=== PATIENT | female | born 1990 | race Caucasian/White ===

== ENCOUNTER 2018-07-24 10:05 | Emergency (ER) | payer OTHER, SELFPAY ==
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
[2018-07-24 11:20] VITALS: BP 115/73; TEMP 97.8; O2SAT 100
== END 2018-07-24 11:16 | disposition left against medical advice (07) ==
LOC: ER 10:05
DX: Z53.21 Procedure and treatment not carried out due to patient leaving prior to being seen by health care provider (principal)
CPT/HCPCS: 99281

== ENCOUNTER 2021-01-18 15:04 | Emergency (ER) | payer BC ==
--- OUTSIDE RECORDS SUMMARY | 2021-01-18 15:07 | XMS REPORT | Continuity of Care Document ---
:1990 Author Organization [facility] t Address [address] [place] [address] Care Team Providers Name Role Phone Unavailable Unavailable Unavailable Payers Payer Name Policy Type Policy Number Effective Date Expiration Date S ource Problems This patient has no known problems. Allergies, Adverse Reactions, Alerts Allergy Allergy Status Severity Reaction(s) Onset Inactive Treating Comm ents Source Name Type Date Date Clinician morphine DA Active U 2019-11 [facility] [place] Medications This patient has no known medications. Procedures This patient has no known procedures. Results Test Description Test Time Test Comments Results Result Comments Source COVID 19 Asymptomatic IH AG 2020-09-06 17:25:00 Test Item Value Reference Range Interpretation Comme nts COVID 19 Asymptomatic IH AG NEGATIVE NEGATIVE This test has been authorized only (test code = COVNONPUIAG) fo r the detection ofproteins from SARS-CoV-2, not for any other viruses orpatho gens. Negative results should be treated as presumptive and confirmed with a molecular assay , if necessary for patientmanageme nt. Negative results do not rule out COVID-19 andshould not be used as the sole basis for treatment orpat ient management decisions, incl uding infection controldecision s. Negative results should be consi dered in thecontext of a patient's recent exposures, history and the presence of clinical signs and sympt oms consistent withCOVID-19. T his test has not been FDA cleare d or approved; the test hasbeen au thorized by FDA under an Emerge ncy Use Authorization(E UA) for use by laboratories ce rtified under the CLIA thatmeet t he requirements to perform moderat e, high or waivedcomplexit y tests. This test is authorized f or use at thePoint of Care (POC), i.e., in patient care settingsop erating under a CLIA Certificate of Waiver, Certificate ofCompliance, o r Certificate of Accreditation. This test is only authorized for the duration of thedeclaration that circumstances exist justifyin g theauthorization of emergency us e of in vitro diagnostic test sfor detection and/or diagnosi s of COVID-19 under Tubdfbu961(b)(1 ) of the Act, 21 U.S.C. 360bbb -3(b)(1), unless theauthorizatio n is terminated or revoked sooner. UR HCG [id number] 13:23:00 Test Item Value Reference Range Interpretation Comments UR HCG QUAL (test NEGATIVE 1. Very d ilute urine code = HCGQLU) specimens, as indicated by a lowspecific g ravity, may not contain rep resentative levels ofhCG. 2 . False negative result s may occur when the levels of hCGare below the sensi tivity level of the test. If is still suspec harjit, a first morningurine sp ecimen should be colle cted 48 hours later and tested. HGB [id number] 11:10:00 Test Item Value Reference Range Interpretation Comments HEMOGLOBIN (test code = HGB) 14.2 g/dL 10.7-13.9 H HEMATOCRIT (test code = HCT) 42.1 % 32.1-42.1 N
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
[2021-01-18 22:17] VITALS: BP 127/93; O2SAT 100
== END 2021-01-18 15:28 | disposition left against medical advice (07) ==
LOC: ER 15:04
DX: R07.9 Chest pain, unspecified (principal); F32.9 Major depressive disorder, single episode, unspecified; Z53.21 Procedure and treatment not carried out due to patient leaving prior to being seen by health care provider
CPT/HCPCS: 93005; 99281

== ENCOUNTER 2021-09-08 22:19 | Emergency (ER) | payer BC ==
[2021-09-08] MEDS ORDERED: ONDANSETRON 4 MG/2 ML VIAL ONE (23:21)
[2021-09-08] MEDS ORDERED: FENTANYL CITR 100 MCG/2 ML ONE (23:21)
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
[2021-09-09] MEDS ORDERED: CYCLOBENZAPRINE 10 MG TAB ONE (00:50)
[2021-09-09 01:15] VITALS: TEMP 98.2
[2021-09-09 01:19] VITALS: BP 136/89; O2SAT 98
--- NOTE | 2021-09-09 17:55 | RAD REPORT ---
EXAM DESCRIPTION: CT - Head C Spine Cap W Con - 09/09/2021 6:26 am COMPARISON: None. CLINICAL HISTORY: [facility] [place] MAIN FACIAL PAIN TECHNIQUE: Axial images were obtained from skull base to vertex without intravenous contrast. Imag es viewed on bone and brain windows. Multiplanar reformats were performed. Automated exposure contr ol was utilized on this examination as a dose lowering technique. FINDINGS: Brain parenchyma, ventricles, dura, meninges, and extra-axial spaces: Ventricles and sulci are normal. No abnormal attenuation of brain parenchyma is present. No acute intracranial hemor rhage or abnormal extra-axial fluid collections are present. Vascular structures: No hyperdense arteries or veins. Calvarium, mastoid air cells, paranasal sinuses and orbits: The calvarium is normal. The mastoid air cells are clear. Visualized paranasal sinuses are unremarkable. Orbital structures are unremarkable. EXAM DESCRIPTION: CT Maxillofacial COMPARISON: None. CLINICAL HISTORY: FACIAL PAIN TECHNIQUE: High resolution axial CT images are obtained through the maxillofacial bones without intr avenous contrast followed by multiplanar reformats. Automated exposure control was utilized on this e xamination as a dose lowering technique. FINDINGS: Maxillofacial bones and mandible: No evidence for fracture or destructive osseous process. Orbital structures: Unremarkable. Paranasal sinuses: Clear. Soft tissues: A small amount of gas is noted in the right paranasal soft tissues. Visualized intracranial structures: The visualized structures of the skull base are normal. Visualize d intracranial structures are normal. EXAM DESCRIPTION: CT Cervical Spine COMPARISON: None. CLINICAL HISTORY: [facility] [place] MAIN PAIN TECHNIQUE: Axial CT images were obtained through the entire cervical spine without contrast. Sagit leann and coronal reconstructions are provided. Automated exposure control was utilized on this examina tion as a dose lowering technique. FINDINGS: Vertebrae: Vertebral statures and alignment are normal. No acute fracture, dislocation o r destructive osseous process is present. Spinal canal, foramina, and facet joints: No significant spinal canal or foraminal stenoses. No significant facet arthropathy. Paraspinous soft-tissues: Normal. Thyroid: Normal. Other Findings: None. EXAM DESCRIPTION: CT Chest, Abdomen, and Pelvis COMPARISON: None. CLINICAL HISTORY: [facility] [place] MAIN PAIN TECHNIQUE: CT images through the chest, abdomen, and pelvis following IV contrast. Multiplanar refor mats. Automated exposure control was utilized on this examination as a dose lowering technique. CT CHEST FINDINGS: Heart and mediastinum: Heart size is normal. No lymphadenopathy. Vascular: Unremarkable. Thyroid gland: Visualized portions are normal. Lungs: Clear. Airways: No filling defects. No bronchiectasis. Pleura: No pneumothorax. No significant pleural effusion. Musculoskeletal and soft tissues: Within normal limits for age. CT ABDOMEN & PELVIS FINDINGS: Liver: Normal. Gallbladder and biliary: Normal gallbladder. Unremarkable biliary tree. Pancreas: Normal. Spleen: Normal. Kidneys and adrenal glands: Normal adrenal glands. Normal kidneys Stomach and Small Bowel: The stomach and small bowel are normal. Urinary bladder: Normal. Uterus and Adnexa: Normal. Colon and Appendix: The colon is unremarkable. No evidence of appendicitis. Peritoneal cavity: No ascites or free air. Retroperitoneum and lymph nodes: Normal. Vascular: Unremarkable. Musculoskeletal and soft tissues: Soft tissues are unremarkable. No aggressive bone lesions. No c ompression fracture. IMPRESSION: HEAD IMPRESSION: No acute intracranial abnormality. MAXILLOFACIAL IMPRESSION: A small amount of gas in the right paranasal soft tissues may indicate a nonvisualized fracture of th e nasal bone or laceration. C-SPINE IMPRESSION: No acute findings of the cervical spine. CHEST IMPRESSION: No acute chest findings. ABDOMEN AND PELVIS IMPRESSION: No acute intra-abdominal abnormality. Electronically signed by: Mauro Clinton MD 09/08/2021 11:23 PM CDT Due to temporary technical issues with the PACS/Fluency reporting system, reports are being signed by the in house radiologists without review as a courtesy to insure prompt reporting. The interpreting radiologist is fully responsible for the content of the report.
--- NOTE | 2021-09-09 18:01 | RAD REPORT ---
EXAM DESCRIPTION: CT - Facial Bones W/ Mpr - 09/09/2021 6:26 am COMPARISON: None. CLINICAL HISTORY: [facility] MAIN FACIAL PAIN TECHNIQUE: Axial images were obtained from skull base to vertex without intravenous contrast. Imag es viewed on bone and brain windows. Multiplanar reformats were performed. Automated exposure contr ol was utilized on this examination as a dose lowering technique. FINDINGS: Brain parenchyma, ventricles, dura, meninges, and extra-axial spaces: Ventricles and sulci are normal. No abnormal attenuation of brain parenchyma is present. No acute intracranial hemor rhage or abnormal extra-axial fluid collections are present. Vascular structures: No hyperdense arteries or veins. Calvarium, mastoid air cells, paranasal sinuses and orbits: The calvarium is normal. The mastoid air cells are clear. Visualized paranasal sinuses are unremarkable. Orbital structures are unremarkable. EXAM DESCRIPTION: CT Maxillofacial COMPARISON: None. CLINICAL HISTORY: FACIAL PAIN TECHNIQUE: High resolution axial CT images are obtained through the maxillofacial bones without intr avenous contrast followed by multiplanar reformats. Automated exposure control was utilized on this e xamination as a dose lowering technique. FINDINGS: Maxillofacial bones and mandible: No evidence for fracture or destructive osseous process. Orbital structures: Unremarkable. Paranasal sinuses: Clear. Soft tissues: A small amount of gas is noted in the right paranasal soft tissues. Visualized intracranial structures: The visualized structures of the skull base are normal. Visualize d intracranial structures are normal. EXAM DESCRIPTION: CT Cervical Spine COMPARISON: None. CLINICAL HISTORY: [facility] MAIN PAIN TECHNIQUE: Axial CT images were obtained through the entire cervical spine without contrast. Sagit leann and coronal reconstructions are provided. Automated exposure control was utilized on this examina tion as a dose lowering technique. FINDINGS: Vertebrae: Vertebral statures and alignment are normal. No acute fracture, dislocation o r destructive osseous process is present. Spinal canal, foramina, and facet joints: No significant spinal canal or foraminal stenoses. No significant facet arthropathy. Paraspinous soft-tissues: Normal. Thyroid: Normal. Other Findings: None. EXAM DESCRIPTION: CT Chest, Abdomen, and Pelvis COMPARISON: None. CLINICAL HISTORY: [facility] MAIB PAIN TECHNIQUE: CT images through the chest, abdomen, and pelvis following IV contrast. Multiplanar refor mats. Automated exposure control was utilized on this examination as a dose lowering technique. CT CHEST FINDINGS: Heart and mediastinum: Heart size is normal. No lymphadenopathy. Vascular: Unremarkable. Thyroid gland: Visualized portions are normal. Lungs: Clear. Airways: No filling defects. No bronchiectasis. Pleura: No pneumothorax. No significant pleural effusion. Musculoskeletal and soft tissues: Within normal limits for age. CT ABDOMEN & PELVIS FINDINGS: Liver: Normal. Gallbladder and biliary: Normal gallbladder. Unremarkable biliary tree. Pancreas: Normal. Spleen: Normal. Kidneys and adrenal glands: Normal adrenal glands. Normal kidneys Stomach and Small Bowel: The stomach and small bowel are normal. Urinary bladder: Normal. Uterus and Adnexa: Normal. Colon and Appendix: The colon is unremarkable. No evidence of appendicitis. Peritoneal cavity: No ascites or free air. Retroperitoneum and lymph nodes: Normal. Vascular: Unremarkable. Musculoskeletal and soft tissues: Soft tissues are unremarkable. No aggressive bone lesions. No c ompression fracture. IMPRESSION: HEAD IMPRESSION: No acute intracranial abnormality. MAXILLOFACIAL IMPRESSION: A small amount of gas in the right paranasal soft tissues may indicate a nonvisualized fracture of th e nasal bone or laceration. C-SPINE IMPRESSION: No acute findings of the cervical spine. CHEST IMPRESSION: No acute chest findings. ABDOMEN AND PELVIS IMPRESSION: No acute intra-abdominal abnormality. Electronically signed by: Mauro Clinton MD 09/08/2021 11:23 PM CDT Due to temporary technical issues with the PACS/Fluency reporting system, reports are being signed by the in house radiologists without review as a courtesy to insure prompt reporting. The interpreting radiologist is fully responsible for the content of the report.
== END 2021-09-09 00:59 | disposition home or self-care (01) ==
LOC: ER 22:19
DX: Z04.71 Encounter for examination and observation following alleged adult physical abuse (principal); R51.9 Headache, unspecified; M54.2 Cervicalgia; R04.0 Epistaxis; E03.9 Hypothyroidism, unspecified; F32.A Depression, unspecified; Z88.5 Allergy status to narcotic agent
CPT/HCPCS: 82565; 70450; 72125; 71260; 70486; 76377; 74177; 96375; 96374; 99285; Q9967; J3010; J2405

== ENCOUNTER 2022-05-03 05:46 | Emergency (ER) | payer BC ==
--- OUTSIDE RECORDS SUMMARY | 2022-05-03 05:48 | XMS REPORT | Continuity of Care Document ---
:[address] [facility] t Address [address] [place] [address] Care Team Providers Name Role Phone Maria Elena Attending Clinician Unavailable G_Pappas Attending Clinician Unavailable Physician, Primary or Family Admitting Clinician Unavailabl e G_Pappas Admitting Clinician Unavailable Payers Payer Name Policy Type Policy Number Effective Date Expiration Date S my[place]: [facility] [id number] 2018 00:00:00 [place] (PPO[place] Problems This patient has no known problems. Allergies, Adverse Reactions, Alerts Allergy Allergy Status Severity Reaction(s) Onset Inactive Treating Comm ents Source Name Type Date Date Clinician morphine DA Active U 2019-11 [facility] morphine DA Active U [facility] 2019-11 [facility] 0-27 [facility] Medications This patient has no known medications. Procedures This patient has no known procedures. Encounters Start End Encounter Admission Attending Care Care Encounter Source Date/Time Date/Time Type Type Clinicians Facility Department ID 2020-09-07 Inpatient DANICA Arredondo ESTELA OUTD [id number] [facility] 10:00:00 [place] [id number] [facility] 2021-03-28 2021-03-28 Outpatient G[facility]Pappas [facility] 2020 [place] 05:43:00 05:43:00 [id number] 2021-03-28 2021-03-28 Outpatient G_Pappas [facility] 2020 [place] 05:43:00 05:43:00 [id number] 2020-09-06 2020-09-06 Outpatient ALEXIS Arredondo [id number] [facility] 10:00:00 10:00:00 [place] [id number] [facility] Results Test Description Test Time Test Comments [...] detection and/or diagnosi s of COVID-19 under Uvagwqj535(b)(1 ) of the Act, 21 U.S.C. 360bbb -3(b)(1), unless theauthorizatio n is terminated or revoked sooner. UR HCG [id number] 13:23:00 Test Item Value Reference Range Interpretation [...] cted 48 hours later and tested. HGB [id number] 11:10:00 Test Item Value Reference Range Interpretation Comments HEMOGLOBIN (test code = HGB) 14.2 g/dL 10.7-13.9 H HEMATOCRIT (test code = HCT) 42.1 % 32.1-42.1 N
[2022-05-03] MEDS ORDERED: ONDANSETRON 4 MG/2 ML VIAL ONE (06:10)
[2022-05-03] MEDS ORDERED: NA CHLORIDE 0.9% 0 ML ONE (06:10)
[2022-05-03 06:25] LABS: Urine Blood NEGATIVE (Negative); Urine Glucose NEGATIVE (Negative); Urine Protein NEGATIVE (Negative); Urine Specific Gravity 1.015 (1.005-1.030); Urine Specific Gravity/Preg 1.015 (1.005-1.030)
--- NOTE | 2022-05-03 06:42 | EDPHYS ---
Physician Documentation [facility] Name: Anna Eugene Age: 32 yrs Sex: Female : 1990 Arrival Date: 05/03/2022 Time: 05:47 Bed 20 Private MD: Nathan Ramos B ED Physician Monroe Abad HPI: 05/03 06:17 This 32 yrs old Female presents to ER via Wheelchair with complaints of andrea Abdominal Pain. 06:17 The patient presents with abdominal pain in the epigastric area, in the upper abdomen. andrea Onset: The symptoms/episode began/occurred 1 day(s) ago. The symptoms radiate to Associated signs and symptoms: none. The symptoms are described as crampy, dull. Modifying factors: The symptoms are alleviated by nothing, the symptoms are aggravated by nothing. Severity of pain: At its worst the pain was moderate in the emergency department the pain is unchanged. The patient has not experienced similar symptoms in the past. MANAGER DIVISION: 06:44 Verified kd3 Historical: - Allergies: 05:57 Morphine; kd3 - Home Meds: 05:57 Prozac 20 mg Oral cap 1 cap once daily [Active]; Synthroid 75 mcg Oral tab 1 tab once kd3 daily [Active]; - PMHx: 05:57 Depression; Hypothyroidism; Lupus; pericardial effusion; kd3 - PSHx: 05:57 breast enlargement; liposuction; section; Tummy tuck; tubal ligation with kd3 reversal; - Immunization history:: Adult Immunizations up to date. - Social history:: Smoking status: unknown. - Family history:: not pertinent. ROS: 06:17 Constitutional: Negative for fever, chills, and weight loss, Eyes: Negative for injury, andrea pain, redness, and discharge, ENT: Negative for injury, pain, and discharge, Neck: Negative for injury, pain, and swelling, Cardiovascular: Negative for chest pain, palpitations, and edema, Respiratory: Negative for shortness of breath, cough, wheezing, and pleuritic chest pain, Back: Negative for injury and pain, : Negative for injury, bleeding, discharge, and swelling, MS/Extremity: Negative for injury and deformity, Skin: Negative for injury, rash, and discoloration, Neuro: Negative for headache, weakness, numbness, tingling, and seizure, Psych: Negative for depression, anxiety, suicide ideation, homicidal ideation, and hallucinations, Allergy/Immunology: Negative for hives, rash, and allergies, Endocrine: Negative for neck swelling, polydipsia, polyuria, polyphagia, and marked weight changes, Hematologic/Lymphatic: Negative for swollen nodes, abnormal bleeding, and unusual bruising. 06:17 Abdomen/GI: Positive for abdominal pain, of the epigastric area and right upper quadrant. Exam: 06:17 Constitutional: This is a well developed, well nourished patient who is awake, alert, andrea and in no acute distress. Head/Face: Normocephalic, atraumatic. Eyes: Pupils equal round and reactive to light, extra-ocular motions intact. Lids and lashes normal. Conjunctiva and sclera are non-icteric and not injected. Cornea within normal limits. Periorbital areas with no swelling, redness, or edema. ENT: Nares patent. No nasal discharge, no septal abnormalities noted. Tympanic membranes are normal and external auditory canals are clear. Oropharynx with no redness, swelling, or masses, exudates, or evidence of obstruction, uvula midline. Mucous membranes moist. Neck: Trachea midline, no thyromegaly or masses palpated, and no cervical lymphadenopathy. Supple, full range of motion without nuchal rigidity, or vertebral point tenderness. No Meningismus. Chest/axilla: Normal chest wall appearance and motion. Nontender with no deformity. No lesions are appreciated. Cardiovascular: Regular rate and rhythm with a normal S1 and S2. No gallops, murmurs, or rubs. Normal PMI, no JVD. No pulse deficits. Respiratory: Lungs have equal breath sounds bilaterally, clear to auscultation and percussion. No rales, rhonchi or wheezes noted. No increased work of breathing, no retractions or nasal flaring. Back: No spinal tenderness. No costovertebral tenderness. Full range of motion. Skin: Warm, dry with normal turgor. Normal color with no rashes, no lesions, and no evidence of cellulitis. MS/ Extremity: Pulses equal, no cyanosis. Neurovascular intact. Full, normal range of motion. Neuro: Awake and alert, GCS 15, oriented to person, place, time, and situation. Cranial nerves II-XII grossly intact. Motor strength 5/5 in all extremities. Sensory grossly intact. Cerebellar exam normal. Normal gait. Psych: Awake, alert, with orientation to person, place and time. Behavior, mood, and affect are within normal limits. 06:17 Abdomen/GI: Inspection: gravid appearance, is noted, Bowel sounds: normal, Palpation: mild abdominal tenderness, in the epigastric area and right upper quadrant, Liver: no appreciated palpable abnormalities, Hernia: not appreciated. 06:41 Musculoskeletal/extremity: DVT Exam: No signs of deep vein thrombosis. no pain, no andrea swelling, no tenderness, negative Homans' sign noted on exam, no appreciated bluish discoloration, no erythema, no increased warmth. Vital Signs: 05:54 BP 124 / 76; Pulse 85; Resp 18; Pulse Ox 99% on R/A; Weight 77.11 kg; Height 5 ft. 2 kd3 in. (157.48 cm); Pain 9/10; 05:59 Temp 98.2(O); kd3 06:06 BP 115 / 84; Pulse 94; Resp 19; Pulse Ox 99% on R/A; kd3 06:42 BP 116 / 92; Pulse 98; Resp 19; Pulse Ox 100% on R/A; kd3 05:54 Body Mass Index 31.09 (77.11 kg, 157.48 cm) kd3 MDM: 05:56 Patient medically screened. andrea 06:27 Differential diagnosis: Cholelithiasis, non-specific abd pain, Peptic Ulcer Disease. [facility] Data reviewed: vital signs, nurses notes, radiologic studies, ultrasound. 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 Counseling: I had a detailed discussion with the patient and/or guardian regarding: the historical points, exam findings, and any diagnostic results supporting the discharge/admit diagnosis, the need for outpatient follow up, for definitive care, a general surgeon, an OB/Gyne specialist. 05/03 06:14 Order name: Urine --Ancillary (enter results) [facility] 05/03 06:14 Order name: Urine Dipstick--Ancillary (enter results) [facility] 05/03 06:17 Order name: US Abdomen Limited [facility] 05/03 05:57 Order name: Urine Dipstick-Ancillary (obtain specimen); Complete Time: 06:12 [facility] 05/03 05:57 Order name: Urine Test (obtain specimen); Complete Time: 06:12 [facility] 05/03 06:17 Order name: FHT's; Complete Time: 06:28 [facility] 05/03 06:27 Order name: US OB Limited andrea Administered Medications: 06:18 Not Given (Patient Refused): NS 0.9% 1000 ml IV at 1 bolus Per protocol; 1000 mL bolus kd3 06:19 Not Given (Patient Refused): Zofran (Ondansetron) 4 mg IVP once; over 2 minutes kd3 Disposition Summary: 05/03/22 06:42 Discharge Ordered Location: Home [facility] Problem: new andrea Symptoms: have improved andrea Condition: Stable andrea Diagnosis - Epigastric abdominal tenderness andrea - 28 weeks gestation of andrea - Functional dyspepsia [facility] Followup: [facility] - With: - When: 2 - 3 days - Reason: Recheck today's complaints, Continuance of care, Re-evaluation by your physician Discharge Instructions: - Discharge Summary Sheet andrea - Abdominal Pain, Adult andrea - Care [facility] Forms: - Medication Reconciliation Form [facility] - Thank You Letter [facility] - Antibiotic Education [facility] - Prescription Opioid Use [facility] Signatures: Dispatcher [employer] EDMonroe Wagner MD MD cha Doucette, Kyli RN RN kd3 Corrections: (The following items were deleted from the chart) 06:18 05:57 IV Saline Lock ordered. [facility] kd3 06:18 05:57 Labs collected and sent ordered. [facility] kd3
--- NOTE | 2022-05-03 06:42 | ER ---
Nurse's Notes [facility] Name: Anna Eugene Age: 32 yrs Sex: Female : 1990 Arrival Date: 05/03/2022 Time: 05:47 Bed 20 Private MD: Nathan Ramos B Diagnosis: Epigastric abdominal tenderness;28 weeks gestation of ;Functional dyspepsia Presentation: 05/03 05:54 Chief complaint: Patient states: PT WENT OT L\T\D THIS MORNING FOR ABDOMINAL PAIN THAT kd3 STARTED AROUND 9:00 LAST NIGHT. PT POINTS TO THE EPIGASTRIC REGION AND SAYS THE PAIN MOVES AROUND TO HER RIGHT FLANK. PT IS 28 WEEKS AND THIS IS HER 4TH . Coronavirus screen: Vaccine status: Patient reports being unvaccinated. Ebola Screen: No symptoms or risks identified at this time. Initial Sepsis Screen: Does the patient meet any 2 criteria? No. Patient's initial sepsis screen is negative. Does the patient have a suspected source of infection? No. Patient's initial sepsis screen is negative. Risk Assessment: Do you want to hurt yourself or someone else? Patient reports no desire to harm self or others. Onset of symptoms was May 03, 2022. 05:54 Method Of Arrival: Wheelchair kd3 05:54 Acuity: KALYANI 3 kd3 Triage Assessment: 05:57 General: Appears uncomfortable, Behavior is calm, cooperative. Pain: Complains of pain kd3 in right upper quadrant and left upper quadrant. Neuro: Level of Consciousness is awake, alert, obeys commands, Oriented to person, place, time, situation. GI: Bowel sounds present X 4 quads. 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 - Social history:: Smoking status: unknown. - Family history:: not pertinent. Screenin:58 Abuse screen: Denies threats or abuse. Denies injuries from another. Nutritional kd3 screening: No deficits noted. Tuberculosis screening: No symptoms or risk factors identified. Fall Risk None identified. Assessment: 06:00 GI: . kd3 06:00 General: Appears uncomfortable, Behavior is calm, cooperative. Neuro: Level of kd3 Consciousness is awake, alert, obeys commands, Oriented to person, place, time, situation. Cardiovascular: Patient's skin is warm and dry. Respiratory: Airway is patent Trachea midline Respiratory effort is even, unlabored, Respiratory pattern is regular, symmetrical. 06:07 : No deficits noted. EENT: No deficits noted. Derm: No deficits noted. kd3 06:41 Reassessment: Patient and/or family updated on plan of care and expected duration. Pain kd3 level reassessed. Patient is alert, oriented x 3, equal unlabored respirations, skin warm/dry/pink. pt is adamantly requesting discharge. pt educated regarding studies that are recommended to rule out emergency. pt still requesting to be discharged. Vital Signs: 05:54 BP 124 / 76; Pulse 85; Resp 18; Pulse Ox 99% on R/A; Weight 77.11 kg; Height 5 ft. 2 kd3 in. (157.48 cm); Pain 9/10; 05:59 Temp 98.2(O); kd3 06:06 BP 115 / 84; Pulse 94; Resp 19; Pulse Ox 99% on R/A; kd3 06:42 BP 116 / 92; Pulse 98; Resp 19; Pulse Ox 100% on R/A; kd3 05:54 Body Mass Index 31.09 (77.11 kg, 157.48 cm) kd3 ED Course: 05:47 Patient arrived in ED. as 05:48 Nathan Ramos MD is Private Physician. as 05:54 Isatu Linn, LISBETH is Primary Nurse. kd3 05:55 Monroe Aabd MD is Attending Physician. andrea 05:57 Triage completed. kd3 05:57 Arm band placed on right wrist. kd3 06:00 No provider procedures requiring assistance completed. kd3 06:07 Patient has correct armband on for positive identification. kd3 06:42 Nathan Ramos MD is Referral Physician. andrea 06:44 Patient did not have IV access during this emergency room visit. kd3 06:47 US Abdomen Limited In Process Unspecified. EDMS 06:47 US OB Limited In Process Unspecified. EDMS Administered Medications: 06:18 Not Given (Patient Refused): NS 0.9% 1000 ml IV at 1 bolus Per protocol; 1000 mL bolus kd3 06:19 Not Given (Patient Refused): Zofran (Ondansetron) 4 mg IVP once; over 2 minutes kd3 Medication: 06:06 VIS not applicable for this client. kd3 Outcome: 06:42 Discharge ordered by . andrea 06:44 Discharged to home ambulatory. kd3 06:44 Condition: stable 06:44 Discharge instructions given to patient, Instructed on discharge instructions, follow up and referral plans. Demonstrated understanding of instructions, follow-up care. 06:49 Patient left the ED. kd3 Signatures: Dispatcher [employer] EDMS Monroe Abad MD MD cha Martinez, Amelia as Doucette, Kyli, RN RN kd3
[2022-05-03 07:01] VITALS: TEMP 98.2
[2022-05-03 07:05] VITALS: BP 116/92; O2SAT 100
--- NOTE | 2022-05-03 07:30 | RAD REPORT ---
EXAM DESCRIPTION: US - Abdomen Exam Limited - 05/03/2022 6:45 am CLINICAL HISTORY: Abdominal pain. COMPARISON: None. FINDINGS: The gallbladder wall is not thickened. A gallstone is not seen. The biliary tree is normal caliber. IMPRESSION: Unremarkable gallbladder ultrasound.
--- NOTE | 2022-05-03 07:37 | RAD REPORT ---
EXAM DESCRIPTION: US - OB Limited - 05/03/2022 6:45 am CLINICAL HISTORY: with abdominal pain COMPARISON: February 2022 FINDINGS: Limited examination was performed to assess for viability/placenta and amniotic flui d A single live intrauterine is in breech presentation. The placenta is anterior. Prominent vascularity surrounding the placenta may indicate accreta. No sub chorionic/retroplacental bleed The amniotic fluid is within normal limits. Cervix measures 4.8 centimeters Cardiac activity beats per minute 137 beats per minute. The right and left adnexa unremarkable IMPRESSION: A single live intrauterine in breech presentation Normal amniotic fluid Placenta accreta may be present
== END 2022-05-03 06:49 | disposition home or self-care (01) ==
LOC: ER 05:46
DX: O99.612 Diseases of the digestive system complicating pregnancy, second trimester (principal); K30 Functional dyspepsia; O99.282 Endocrine, nutritional and metabolic diseases complicating pregnancy, second trimester; O99.342 Other mental disorders complicating pregnancy, second trimester; F32.A Depression, unspecified; Z3A.27 27 weeks gestation of pregnancy; Z98.82 Breast implant status
CPT/HCPCS: 76705; 76815; 81003; 81025; 99283; J2405; J7030

== ENCOUNTER 2023-08-19 17:18 | Emergency (ER) | payer BC, OTHER ==
--- OUTSIDE RECORDS SUMMARY | 2023-08-19 17:21 | XMS REPORT | Continuity of Care Document ---
:1990 Author Organization [facility] t Address [address] [place] [address] [place] [id number] Care Team Providers Name Role Phone Sumit Jean Baptiste MD Primary Care Physician [phone] João Arredondo Attending Clinician Unavailable RICARDO MELISSA Attending Clinician Unavailable DARBY DAMIAN Attending Clinician Unavailable RL KOCH Attending Clinician Unavailable Jose Maria Newby Attending Clinician Unavailable Leigh Ann_Jeanette Attending Clinician Unavailable Physician, No Primary or Family Admitting Clinician Unavaila Jose Maria Erwin Admitting Clinician Unavailable Leigh Ann_Jeanette Admitting Clinician Unavailable Payers Payer Name Policy Type Policy Number Effective Date Expiration Date S ource BCBS 2 [id number] 2022 00:00:00 [place] [id number] 2018 00:00:00 [place] ([place] Problems Condition Condition Condition Status Onset Resolution Last Treating Co mments Source Name Details Category Date Date Treatment Clinician Date Migraine Migraine Disease Active Overview: Jordan reyes 5-17 Vanesa Castillo 00:00: g of this note Externa might be l different from the original. Neurology Dr. 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 l wagner wagner PTSD PTSD Disease Active Brooke (post-trau (post-trau 11-26 Se ybold matic matic 00:00: - stress stress 00 Externa disorder) disorder) l Primary Primary Disease Active Brooke insomnia insomnia 11-26 Seybol d 00:00: - 00 Externa l Bipolar 1 Bipolar 1 Disease Active Shashank sey disorder disorder 11-26 Seybol d 00:00: - 00 Externa l No known No known Disease Kelse y active active Seybold problems problems - Externa l ADHD ADHD Disease Active [facility] (attention (attention st deficit deficit Hospita hyperactiv hyperactiv l ity ity disorder) disorder) Anxiety Anxiety Disease [facility] Headache Headache Disease Active Metho [facility] l Miscarriag Miscarriag Disease Active M [facility]i e [facility] l Hypothyroi Hypothyroi Disease Active M ethodi dism dis[facility]osp[facility] l Allergies, Adverse Reactions, Alerts Allergy Allergy Status Severity Reaction(s) Onset Inactive Treating Comm ents Source Name Type Date Date Clinician morphine DA Active MO ITCHING [facility] [place] morphine DA Active U 2019-11 [facility] [place] morphine DA Active U ITCHING 2019-11 [facility] 0[facility] [place] Morphine Propensi Active 2019-11 Other Brooke ty to 0-27 reaction( Seybold adverse 00:00: s): - reaction 00 ITCHING Externa s l Codeine Propensi Active Itching Other Brooke ty to 2-26 reaction( Seybold adverse 00:00: s): - reaction 00 Unknown Externa s l Family History Family Member Diagnosis Comments Start Date Stop Date Source Natural brother Mental illness [facility] Natural father Alcohol abuse [facility] Natural father Mental illness [facility] Natural mother Mental illness [facility] Natural mother Miscarriages / [facility] Stillbirths Natural sister Alcohol abuse [facility] Natural sister Mental illness [facility] Social History Social Habit Start Date Stop Date Quantity Comments Source Gender identity Brooke Burch ybold - External Sexual orientation Brooke Burchybold - External History [facility] Tobacco use and 2022-09-10 2022-09-10 Smokeless Brooke Se ybold - exposure 00:00:00 00:00:00 tobacco non-user External History of Social 2022-09-10 2022-09-10 Brooke ybold - function 00:00:00 00:00:00 External Alcohol intake 2019-12-30 2019-12-30 Ex-drinker [facility] 00:00:00 00:00:00 (finding) Hospital History SDOH 2019-12-30 2019-12-30 1 [facility] Alcohol Frequency 00:00:00 00:00:00 Hospita l Sex Assigned At [birth year] [facility] 00:00:00 00:00:00 Hospital Smoking Status Start Date Stop Date Source Never smoked tobacco Brooke Seyb old - External Medications Ordered Filled Start Stop Current Ordering Indication Dosage Frequency Signature Comments Components Source Medication Medication Date Date Medication? Clinician (SIG) Name Name Amphetamine Yes [id number] 20mg Take 1 Brooke -Dextroamph 8-29 tablet (20 Se ybold etamine 20 00:00: mg total) - MG oral 00 by mouth 2 Civil [employer] a Tablet times l daily. Alprazolam Yes [id number] 1mg QD Take 1 K elsey 1 MG oral 8-29 tablet (1 Seybo ld Tablet 00:00: mg total) - 00 by mouth Externa nightly as l needed for sleep or anxiety. Alprazolam 2022- No [id number] 1mg QD Take 1 Brooke 1 MG oral 7-26 08-29 tablet (1 Seyb old Tablet 00:00: 00:00 mg total) - 00 :00 by mouth Externa nightly as l needed for sleep or anxiety Amphetamine 0 2022- No [id number] 20mg Take 1 Brooke -Dextroamph 7-26 08-29 tablet (20 S eybold etamine 20 00:00: 00:00 mg total) - MG oral 00 :00 by mouth 2 [employer] a Tablet times l daily Fluoxetine 0 2022- No 20mg Take 1 Rebecca ey HCl 20 MG 5-17 05-17 capsule Seybol d oral 15:56: 00:00 (20 mg - Capsule 05 :00 total) by Externa mouth l daily Alprazolam Yes [id number] 1mg QD Take 1 K elsey 1 MG oral 5-17 tablet (1 Seybo ld Tablet 00:00: mg total) - 00 by mouth Externa nightly as l needed for sleep or anxiety Amphetamine Yes [id number] 20mg Take 1 Brooke -Dextroamph 5-17 tablet (20 Se ybold etamine 20 00:00: mg total) - MG oral 00 by mouth 2 [employer] a Tablet times l daily Semaglutide Yes [id number] .25mg Inject Brooke -Weight 5-17 0.25 mg Seybold Management 00:00: into the - (Wegovy) 00 skin once Civil [employer]sman a 0.25 a week l MG/0.5ML subcutaneou s Solution Auto-inject or Alprazolam 2022- No [id number] 1mg QD Take 1 Brooke 1 MG oral 4-25 05-17 tablet (1 Seyb old Tablet 00:00: 00:00 mg total) - 00 :00 by mouth Externa nightly as l needed for sleep or anxiety Amphetamine 2022- No [id number] 20mg Take 1 Brooke -Dextroamph 4-25 05-17 tablet (20 S eybold etamine 20 00:00: 00:00 mg total) - MG oral 00 :00 by mouth 2 [employer] a Tablet times l daily Fluoxetine Yes 20mg Take 20 mg K elsey HCl 20 MG 1-16 by mouth Seybol d oral 16:37: daily - Capsule 07 Externa l Alprazolam Yes [id number] 1mg QD Take 1 K elsey 1 MG oral 1-16 tablet (1 Seybo ld Tablet 00:00: mg total) - 00 by mouth Externa nightly as l needed for sleep or anxiety Amphetamine 2022-0 Yes [id number] 20mg Take 1 Brooke -Dextroamph 1-16 tablet (20 Se ybold etamine 20 00:00: mg total) - MG oral 00 by mouth 2 [employer] a Tablet times l daily Amphetamine 2021-11- No [id number] 20mg Take 1 Brooke -Dextroamph 2-12 01-16 tablet (20 S eybold etamine 20 00:00: 00:00 mg total) - MG oral 00 :00 by mouth 2 [employer] a Tablet times l daily Alprazolam 2021-11- No [id number] TAKE 1 Brooke 1 MG oral -09 12-16 TABLET BY Seyb old Tablet 00:00: 00:00 MOUTH - 00 :00 NIGHTLY Externa NEEDED FOR l SLEEP OR ANXIETY Alprazolam 2021-11- No 1mg QD Take 1 mg K elsey (Xanax) 1 0-31 10-31 by mouth Seybo ld MG oral 13:56: 00:00 nightly as - Tablet 15 :00 needed for Externa sleep l Levothyroxi 2021-11 Yes [id number] 75ug Take 1 Brooke ne Sodium 0-31 tablet (75 Seyb old 75 MCG oral 00:00: mcg total) - Tablet 00 by mouth Externa daily l Levothyroxi 2021-11 Yes [id number] 75ug Take 1 Brooke ne Sodium 0-31 tablet (75 Seyb old 75 MCG oral 00:00: mcg total) - Tablet 00 by mouth Externa daily l Alprazolam 2021-11 Yes [id number] 1mg QD Take 1 K elsey (Xanax) 1 0-31 tablet (1 Seybo ld MG oral 00:00: mg total) - Tablet 00 by mouth Externa nightly as l needed for sleep or anxiety Levothyroxi 2021-11 Yes [id number] 75ug Take 1 Brooke ne Sodium 0-31 tablet (75 Seyb old 75 MCG oral 00:00: mcg total) - Tablet 00 by mouth Externa daily l Levothyroxi 2021-11 Yes [id number] 75ug Take 1 Brooke ne Sodium 0-31 tablet (75 Seyb old 75 MCG oral 00:00: mcg total) - Tablet 00 by mouth Externa daily l Amphetamine Yes Brooke -Dextroamph 9-27 Seybold etamine 20 00:00: - MG oral 00 Externa Tablet l Levothyroxi 2021- No 1{tbl} Take 1 K elsey ne Sodium 8-18 10-31 tablet by Seyb old 75 MCG oral 00:00: 00:00 mouth - Tablet 00 :00 daily Externa l dextroamphe 0 Yes 15mg QD Take 15 mg [facility]i tamine-amph 2-[address] etamine 14:28: daily. Hospita (AdderalL) 55 l 15 mg tablet fluticasone 0 Yes 1{puff} QD Inhale 1 [facility] /vilanterol 2-[address] (BREO 14:28: daily. Hospita ELLIPTA 55 l INHL) diazePAM 0 Yes 10mg QD Take 10 mg Met hodi (VALIUM) 10 2-[address] MG tablet 14:28: daily. Hospit a 55 l levothyroxi 0 Yes 75ug QD Take 75 Met hodi ne 2-[address] (SYNTHROID) 14:28: mouth Hospi ta 75 mcg 55 daily. l tablet Vital Signs Vital Name Observation Time Observation Value Comments Source Systolic blood 2023-07-09 16:02:00 126 mm[Hg] Brooke Castillo - pressure External Diastolic blood 2023-07-09 16:02:00 84 mm[Hg] Jeane Castillo - pressure External Heart rate 2023-07-09 16:02:00 67 /min Brooke lowery - External Body temperature 2023-07-09 16:02:00 36.56 Radha Rebecca Castillo - External Respiratory rate 2023-07-09 16:02:00 20 /min Rebecca Castillo - External Body height 2023-07-09 16:02:00 157.5 cm Brooke lowery - External Body weight 2023-07-09 16:02:00 78.019 kg Brooke lowery - External BMI 2023-07-09 16:02:00 31.46 kg/m2 Brooke lowery - External Oxygen saturation in 2023-07-09 16:02:00 99 /min Brooke Sepratibhaold - Arterial blood by External Pulse oximetry Systolic blood 2023-03-27 21:13:00 120 mm[Hg] Brooke Seybold - pressure External Diastolic blood 2023-03-27 21:13:00 80 mm[Hg] Shashankse y Seybold - pressure External Heart rate 2023-03-27 20:53:00 78 /min Brooke S eybold - External Body temperature 2023-03-27 20:53:00 37.06 Radha Rebecca ey Seybold - External Respiratory rate 2023-03-27 20:53:00 19 /min Rebecca ey Seybold - External Body height 2023-03-27 20:53:00 157.5 cm Brooke Brewer eybold - External Body weight 2023-03-27 20:53:00 78.472 kg Brooke Brewer eybold - External BMI 2023-03-27 20:53:00 31.64 kg/m2 Brooke Brewer eybold - External Systolic blood 2022-11-26 22:26:00 114 mm[Hg] Brooke Seybold - pressure External Diastolic blood 2022-11-26 22:26:00 68 mm[Hg] Jeane y Seybold - pressure External Heart rate 2022-11-26 22:26:00 75 /min Brooke Brewer eybold - External Body temperature 2022-11-26 22:26:00 36.78 Radha Rebecca ey Seybold - External Respiratory rate 2022-11-26 22:26:00 14 /min Rebecca ey Seybold - External Body height 2022-11-26 22:26:00 157.5 cm Brooke Brewer eybold - External Body weight 2022-11-26 22:26:00 74.39 kg Brooke Brewer eybold - External BMI 2022-11-26 22:26:00 30.00 kg/m2 Brooke S eybold - External Systolic blood 2022-09-10 18:43:00 122 mm[Hg] Brooke Seybold - pressure External Diastolic blood 2022-09-10 18:43:00 79 mm[Hg] Shashankse y Seybold - pressure External Heart rate 2022-09-10 18:43:00 71 /min Brooke S eybold - External Body temperature 2022-09-10 18:43:00 36.72 Radha Rebecca payne Seybsumi - External Respiratory rate 2022-09-10 18:43:00 13 /min Rebecca payne Selinnette - External Body height 2022-09-10 18:43:00 157.5 cm Brooke paynebold - External Body weight 2022-09-10 18:43:00 73.755 kg Brooke Brewer eybold - External BMI 2022-09-10 18:43:00 29.74 kg/m2 Brooke paynebopiter - External Oxygen saturation in 2022-09-10 18:43:00 99 /min Brooke Castillo - Arterial blood by External Pulse oximetry Procedures Procedure Date / Time Performed Performing Clinician Stephanie deleon [id number] 2022-07-03 [facility] Care Planned Activity Planned Date Details Comments Source Future Scheduled 2023-02-20 COVID-19 VACCINE [facility] Test 14:27:38 (#1) [code = COVID-19 VACCINE (#1)] Future Scheduled 2023-02-20 Screening for [facility] Test 14:27:38 malignant neoplasm of cervix (procedure) [code = 572430998] Future Scheduled 2023-02-20 [facility] 14:27:38 [code = INFLUENZA VACCINE] Encounters Start End Encounter Admission Attending Care Care Encounter Source Date/Time Date/Time Type Type Clinicians Facility Department ID 2020-09-07 Inpatient ESTELA Amezcua OUTD [id number] [facility] 10:00:00 Ertug 95 [facility] 2023-09-30 2023-09-30 Outpatient BROOKE MELISSA [id number] Brooke 13:30:00 13:30:00 RICARDO Seybol d 2023-08-08 2023-08-08 Outpatient BROOKE MELISSA [id number] Brooke 00:00:00 00:00:00 RICARDO Burchybol enrique 2023-07-12 2023-07-12 Outpatient BROOKE MELISSA [id number] Brooke 00:00:00 00:00:00 RICARDO Seybol enrique 2023-07-09 2023-07-09 Outpatient BROOKE MELISSA [id number] Brooke 11:15:00 11:15:00 RICARDO Seybol d 2023-06-03 2023-06-03 Outpatient PREZAS, BROOKE YING [id number] Brooke 00:00:00 00:00:00 RICARDO Seybol d 2023-05-28 2023-05-28 Outpatient PREZAS, BROOKE YING [id number] Brooke 14:30:00 14:30:00 RICARDO Seybol d 2023-05-06 2023-05-06 Outpatient PREZAS, BROOKE YING [id number] Brooke 00:00:00 00:00:00 RICARDO Seybol d 2023-05-03 2023-05-03 Outpatient PREZAS, BROOKE YING [id number] Brooke 00:00:00 00:00:00 RICARDO Seybol d 2023-04-25 2023-04-25 Outpatient PREZAS, BROOKE YING [id number] Brooke 15:30:00 15:30:00 RICARDO Seybol d 2023-04-25 2023-04-25 Outpatient PREZAS, BROOKE YING [id number] Brooke 00:00:00 00:00:00 RIACRDO Seybol d 2023-04-25 2023-04-25 Outpatient PREZAS, BROOKE YING [id number] Brooke 00:00:00 00:00:00 RICARDO Seybol d 2023-03-27 2023-03-27 Outpatient PREZAS, BROOKE YING [id number] Brooke 16:15:00 16:15:00 RICARDO Seybol d 2023-03-05 2023-03-05 Outpatient PREZAS, BROOKE YING [id number] Brooke 00:00:00 00:00:00 RICARDO Seybol d 2023-03-01 2023-03-01 Outpatient PREZAS, BROOKE YING [id number] Brooke 00:00:00 00:00:00 RICARDO Seybol d 2023-01-25 2023-01-25 Outpatient PREZAS, BROOKE YING [id number] Brooke 00:00:00 00:00:00 RICARDO Seybol d 2022-12-26 2022-12-26 Outpatient PREZAS, BROOKE YING [id number] Brooke 00:00:00 00:00:00 RICARDO Seybol d 2022-11-27 2022-11-27 Outpatient PREZAS, BROOKE YING [id number] Brooke 00:00:00 00:00:00 RICARDO Seybol d 2022-11-27 2022-11-27 Outpatient PREZAS, BROOKE YING [id number] Brooke 00:00:00 00:00:00 RICARDO Seybol d 2022-11-27 2022-11-27 Outpatient PREZAS, BROOKE YING [id number] Brooke 00:00:00 00:00:00 RICARDO Seybol d 2022-11-26 2022-11-26 Outpatient PREZAS, BROOKE YING [id number] Brooke 16:30:00 16:30:00 RICARDO Seybol d 2022-11-22 2022-11-22 Outpatient RAVENLBROOKE [id number] Brooke 14:00:00 14:00:00 DARBY Seybol d 2022-10-22 2022-10-22 Outpatient PREZASBROOKE [id number] Brooke 00:00:00 00:00:00 RICARDO Seybol d 2022-10-10 2022-10-10 Outpatient PREZASBROOKE [id number] Brooke 00:00:00 00:00:00 RICARDO Seybol d 2022-09-24 2022-09-24 Outpatient BROOKE KOCH [id number] Brooke 00:00:00 00:00:00 RL Seybol d 2022-09-11 2022-09-11 Outpatient BROOKE KOCH [id number] Brooke 00:00:00 00:00:00 RL Seybol d 2022-09-10 2022-09-10 Outpatient BROOKE DAMIAN [id number] Brooke 13:30:00 13:30:00 DARBY Seybol d 2022-09-10 2022-09-10 Outpatient BROOKE KOCH [id number] Brooke 00:00:00 00:00:00 RL nunez 2022-09-05 2022-09-05 Outpatient BROOKE DAMIAN BROOKE [id number] Brooke 15:00:00 15:00:00 DARBY nunez 2022-07-03 2022-07-06 Inpatient EL Odin, [facility] [id number] [facility] 05:08:00 18:28:00 Ziad [facility] 2022-05-08 2022-05-08 Outpatient Odin [facility] [id number] [facility] 18:05:00 18:05:00 Ziad 08 [facility] 2021-03-28 2021-03-28 Outpatient G_Pappas [facility] [place] 05[facility]43:00 05:43:00 [id number] 2021-03-28 2021-03-28 Outpatient G_Pappas [facility] 2020 [place] 05:43:00 05:43:00 [facility] Results Test Description Test Time Test Comments Results Result Comments Source CBC W/AUTO DIFF 2022-07-04 07:55:00 Test Item Value Reference Range Interpretation Comme nts WHITE BLOOD CELL (test code = WBC) 9.0 K/mm3 6.5-12.3 N RED BLOOD CELL (test code = RBC) 3.03 M/mm3 3.51-4.69 L HEMOGLOBIN (test code = HGB) 8.2 g/dL 10.1-13.8 L HEMATOCRIT (test code = HCT) 25.6 % 32.5-41.8 L MEAN CELL VOLUME (test code = MCV) 84.5 fL 84.6-96.6 L MEAN CELL HGB (test code = MCH) 27.1 pg 27.3-33.9 L MEAN CELL HGB CONCETRATION (test code = MCHC) 32.0 gm/dL 32.0-34. 2 N RED CELL DISTRIBUTION WIDTH (test code = RDW) 14.5 % 12.2-16. 3 N PLATELET COUNT (test code = PLT) 191 K/mm3 134-363 N MEAN PLATELET VOLUME (test code = MPV) 10.9 fL 9.2-12.7 N NEUTROPHIL % (test code = NT%) 67.1 % 57.9-77.3 N LYMPHOCYTE % (test code = LY%) 23.9 % 14.5-29.7 N MONOCYTE % (test code = MO%) 6.5 % 3.6-10.2 N EOSINOPHIL % (test code = EO%) 1.9 % 0.0-3.0 N BASOPHIL % (test code = BA%) 0.3 % 0.1-0.9 N NEUTROPHIL # (test code = NT#) 6.1 K/mm3 LYMPHOCYTE # (test code = LY#) 2.2 K/mm3 MONOCYTE # (test code = MO#) 0.6 K/mm3 EOSINOPHIL # (test code = EO#) 0.17 K/mm3 BASOPHIL # (test code = BA#) 0.0 K/mm3 RBC MORPHOLOGY REQUIRED (test code = RBCM) NORMAL NORMAL PLATELET MORPHOLOGY REQUIRED (test code = PLTMR) NORMAL MAYE L CAPILLARY BLOOD [id number] 08:32:00 Test Item Value Reference Range Interpretation Comments CAPILLARY BLOOD GAS PH (test code 7.313 7.35-7.45 L = PHC) CAPILLARY BLOOD GAS PCO2 (test 45.0 mmHg code = PCO2C) CAPILLARY BLOOD GAS PO2 (test code 18.3 mmHg = PO2C) CBG HCO3 (test code = HCO3C) 22.3 meq/L CBG BASE EXCESS (test code = BEC) -4.0 CBG O2 SATURATION (test code = 24.2 % SATC) CAPILLARY BLOOD GAS TYPE (test CBLV code = TYPEC) CAPILLARY BLOOD GAS FIO2 (test 21.0 % code = FIO2C) CAPILLARY BLOOD [id number] 08:31:00 Test Item Value Reference Range Interpretation Comments CAPILLARY BLOOD GAS PH (test code 7.171 7.35-7.45 LL = PHC) CAPILLARY BLOOD GAS PCO2 (test 55.7 mmHg code = PCO2C) CAPILLARY BLOOD GAS PO2 (test code 15.1 mmHg = PO2C) CBG HCO3 (test code = HCO3C) 19.9 meq/L CBG BASE EXCESS (test code = BEC) -9.1 CAPILLARY BLOOD GAS TYPE (test CBLA code = TYPEC) CAPILLARY BLOOD GAS FIO2 (test 21.0 % code = FIO2C) AB HIV 1 07:38:00 Test Item Value Reference Range Interpretation Comments AB HIV 1 2 (test NONREACTIVE NONREACTIVE Done by [employer] code = [id number]) 4th Gen HIV Ag/Ab Combo Screen COMPREHENSIVE METABOLIC [id number] 06:51:00 Test Item Value Reference Range Interpretation Comments SODIUM (test code = NA) 137 mEq/L 135-145 N POTASSIUM (test code = K) 3.7 mEq/L 3.5-5.0 N CHLORIDE (test code = CL) 104 mEq/L 100-115 N CARBON DIOXIDE (test code = CO2) 22 mEq/L 22-31 N ANION GAP (test code = GAP) 14.50 10-20 N GLUCOSE (test code = GLU) 86 mg/dL 65-110 N BLOOD UREA NITROGEN (test code = 6 mg/dL 7-18 L BUN) GLOMERULAR FILTRATION RATE (test 185 ml/min >60 N code = GFR) CREATININE (test code = CREAT) 0.4 mg/dL 0.5-1.0 L TOTAL PROTEIN (test code = PROT) 6.5 gm/dL 6.3-8.2 N ALBUMIN (test code = ALB) 2.7 gm/dL 3.4-4.8 L CALCIUM (test code = CA) 8.8 mg/dL 8.4-10.2 N BILIRUBIN TOTAL (test code = 0.4 mg/dL 0.2-1.0 N BILT) SGOT/AST (test code = AST) 20 units/L 15-37 N SGPT/ALT (test code = ALT) 17 units/L 12-78 N ALKALINE PHOSPHATASE TOTAL (test 193 units/L 46-116 H code = ALKP) AG HEPATITIS B [id number] 15:54:00 Test Item Value Reference Range Interpretation Comments AG HEPATITIS B SURFACE (test code NONREACTIVE NONREACTIVE = HBSAG) AB HEPATITIS C [id number] 15:54:00 Test Item Value Reference Range Interpretation Comments AB HEPATITIS C (test code = NONREACTIVE NONREACTIVE HCVAB) SIGNAL TO CUTOFF (test code = 0.17 <0.80 N CUTOFF) AB [id number] 15:54:00 Test Item Value Reference Range Interpretation Comments AB TREPONEMA (test code = TREPAB) NONREACTIVE NONREACTIVE COVID 19 Asymptomatic IH [id number] 15:48:00 Test Item Value Reference Range Interpretation Comments COVID 19 NEGATIVE NEGATIVE This test has b een Asymptomatic IH AG authorize d only for the (test code = detection ofpro teins from COVNONPUIAG) SARS-CoV-2, not for any other viruses orpathogens. Ne gative results should be treated as presumptive andconfirmed wi th a molecular assay , if necessary for patientmanageme nt. Negative result s do not rule out COVID- 19 andshould not b e used as the sole basis for treatment orpat ient management deci sions, including infec tion controldecision s. Negative result s should be considered i n thecontext of a patient's recent exposure s, history and thepresence of clinical signs and symptoms consis tent withCOVID-19. T his test has not been FD A cleared or approved; th e test hasbeen authori april by FDA under an Emerge ncy Use Authorization(E UA) for use by laborato dimitri certified under the CLIA thatmeet the re quirements to perform mode rate, high or waivedcomple xity tests. This quentin t is authorized for use at thePoint of Car e (POC), i.e., in patien t care settingsoperati ng under a CLIA Certificat e of Waiver, Certifi hakeem ofCompliance, o r Certificate of Accreditation. This test is only authori zed for the duration of thedeclaration that circumstances e xist justifying theauthorizatio n of emergency use o f in vitro diagnostic test sfor detection and/o r diagnosis of CO VID-19 under [id number] 4(b)(1) of the Act, 21 U.S .C. 360bbb-3(b)(1), unless theauthorizatio n is terminated or r evoked sooner. CBC W/AUTO [id number] 13:46:00 Test Item Value Reference Range Interpretation Comments WHITE BLOOD CELL (test code = WBC) 9.3 K/mm3 6.5-12.3 N RED BLOOD CELL (test code = RBC) 3.84 M/mm3 3.51-4.69 N HEMOGLOBIN (test code = HGB) 10.2 g/dL 10.1-13.8 N HEMATOCRIT (test code = HCT) 32.4 % 32.5-41.8 L MEAN CELL VOLUME (test code = MCV) 84.4 fL 84.6-96.6 L MEAN CELL HGB (test code = MCH) 26.6 pg 27.3-33.9 L MEAN CELL HGB CONCETRATION (test 31.5 gm/dL 32.0-34.2 L code = MCHC) RED CELL DISTRIBUTION WIDTH (test 14.4 % 12.2-16.3 N code = RDW) PLATELET COUNT (test code = PLT) 224 K/mm3 134-363 N MEAN PLATELET VOLUME (test code = 10.6 fL 9.2-12.7 N MPV) NEUTROPHIL % (test code = NT%) 77.6 % 57.9-77.3 H LYMPHOCYTE % (test code = LY%) 16.5 % 14.5-29.7 N MONOCYTE % (test code = MO%) 4.2 % 3.6-10.2 N EOSINOPHIL % (test code = EO%) 1.1 % 0.0-3.0 N BASOPHIL % (test code = BA%) 0.2 % 0.1-0.9 N NEUTROPHIL # (test code = NT#) 7.2 K/mm3 LYMPHOCYTE # (test code = LY#) 1.5 K/mm3 MONOCYTE # (test code = MO#) 0.4 K/mm3 EOSINOPHIL # (test code = EO#) 0.10 K/mm3 BASOPHIL # (test code = BA#) 0.0 K/mm3 RBC MORPHOLOGY REQUIRED (test code NORMAL NORMAL = RBCM) PLATELET MORPHOLOGY REQUIRED (test NORMAL NORMAL code = PLTMR) COVID 19 Asymptomatic IH [id number] 17:25:00 Test Item Value Reference Range Interpretation Comments COVID 19 NEGATIVE NEGATIVE This test has b een Asymptomatic IH AG authorize d only for the (test code = detection ofpro teins from COVNONPUIAG) SARS-CoV-2, not for any other viruses orpathogens. Ne gative results should be treated as presumptive andconfirmed wi th a molecular assay , if necessary for patientmanageme nt. Negative result s do not rule out COVID- 19 andshould not b e used as the sole basis for treatment orpat ient management deci sions, including infec tion controldecision s. Negative result s should be considered i n thecontext of a patient's recent exposure s, history and thepresence of clinical signs and symptoms consis tent withCOVID-19. T his test has not been FD A cleared or approved; th e test hasbeen authori april by FDA under an Emerge ncy Use Authorization(E UA) for use by laborato dimitri certified under the CLIA thatmeet the re quirements to perform mode rate, high or waivedcomple xity tests. This quentin t is authorized for use at thePoint of Car e (POC), i.e., in patien t care settingsoperati ng under a CLIA Certificat e of Waiver, Certifi hakeem ofCompliance, o r Certificate of Accreditation. This test is only authori mosesd for the duration of thedeclaration that circumstances e xist justifying theauthorizatio n of emergency use o f in vitro diagnostic test sfor detection and/o r diagnosis of CO VID-19 under [id number] 4(b)(1) of the Act, 21 U.S .C. 360bbb-3(b)(1), unless theauthorizatio n is terminated or r evoked sooner. UR HCG [id number] 13:23:00 Test Item Value Reference Range Interpretation [...] cted 48 hours later and tested. HGB [id number] 11:10:00 Test Item Value Reference Range Interpretation Comments HEMOGLOBIN (test code = HGB) 14.2 g/dL 10.7-13.9 H HEMATOCRIT (test code = HCT) 42.1 % 32.1-42.1 N
[2023-08-19] MEDS ORDERED: ONDANSETRON 4 MG/2 ML VIAL ONE (18:00)
[2023-08-19] MEDS ORDERED: NA CHLORIDE 0.9% 1,000 ML ONE (18:00)
[2023-08-19] MEDS ORDERED: FENTANYL CITR 100 MCG/2 ML ONE (18:15)
[2023-08-19 18:18] LABS: Hematocrit 41.4 % (36.0-45.0); Lymphocytes % 40.4 % (15.3-44.8); MCV 85.2 fL (80-100); MPV 8.2 fL (7.6-11.3); Platelets 378 thou/uL (152-406); RBC Red Blood Cell Count 4.86 M/uL (3.86-4.86)
[2023-08-19 18:19] LABS: Specific Gravity 1.016 (1.005-1.030)
[2023-08-19 18:23] LABS: Specific Gravity 1.016 (1.005-1.030); Urine Bacteria <20 /HPF (<20); Urine Bilirubin NEGATIVE (Negative); Urine Blood Negative (Negative); Urine Clarity Extremely Turbid (Clear); Urine Color Light-Yellow (Yellow); Urine Crystals Unidentified Few /HPF (None Seen); Urine Glucose NEGATIVE (Negative); Urine Mucus Slight /HPF (None Seen); Urine Protein NEGATIVE (Negative); Urine RBC <5 /HPF (None Seen); Urine Urobilinogen Normal (Normal); Urine pH 6.5 (5.0-7.0)
[2023-08-19 18:39] LABS: Albumin 3.9 g/dL (3.4-5.0); Bilirubin Total 0.3 mg/dL (0.2-1.0); Potassium 4.1 mEq/L (3.5-5.1); Protein, Total 7.9 g/dL (6.4-8.2)
--- NOTE | 2023-08-19 19:12 | RAD REPORT ---
EXAM DESCRIPTION: CT - Abdomen Pelvis W Contrast - 08/19/2023 6:56 pm CLINICAL HISTORY: ABD PAIN COMPARISON: Abdomen Pelvis W Contrast dated 12/06/2016; CT ABD PELVIS W CONTRAST dated 02/13/2014 TECHNIQUE: Thin cut axial CT imaging of the abdomen and pelvis was performed following intravenous a dministration of 100 mL Isovue 300. Multiplanar reformats were generated and reviewed. All CT scans are performed using dose optimization technique as appropriate and may include automated exposure control or mA/KV adjustment according to patient size. FINDINGS: No suspicious findings in the lung bases. The liver, spleen, adrenal glands, and pancreas show no suspicious findings. Gallbladder is suboptima lly distended limiting evaluation. Symmetric renal function is seen with no hydronephrosis or suspicious renal mass. No dilated bowel loops or bowel wall thickening. Appendix is visualized and is unremarkable. No free air, free fluid or inflammatory stranding. No hernia, mass or bulky lymphadenopathy. Scarring extends to the anterior uterine wall suggestive of sequelae of prior section. The urinary bladder i s without significant finding. No suspicious bony findings. IMPRESSION: No acute intra-abdominal process.
--- NOTE | 2023-08-19 19:29 | EDPHYS ---
Physician Documentation [facility] Name: Anna Eugene Age: 33 yrs Sex: Female : 1990 Arrival Date: 08/19/2023 Time: 17:18 Bed DIS3 Private MD: ED Physician Leo Mccallum HPI: 08/19 19:26 This 33 yrs old Female presents to ER via Ambulatory with complaints of Side Pain. kb 19:26 The patient presents with abdominal pain right lower quadrant. Onset: The kb symptoms/episode began/occurred this morning. The symptoms do not radiate. Associated signs and symptoms: Pertinent positives: nausea, Pertinent negatives: diarrhea, fever, vomiting. The symptoms are described as constant. Modifying factors: The symptoms are alleviated by nothing, the symptoms are aggravated by movement, pressure. Severity of pain: At its worst the pain was moderate in the emergency department the pain is unchanged. The patient has not experienced similar symptoms in the past. The patient has not recently seen a physician. 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 - Social history:: Smoking status: Patient denies any tobacco usage or history of. ROS: 19:25 Constitutional: Negative for fever, chills, and weight loss, kb 19:25 Abdomen/GI: Positive for abdominal pain, nausea, 19:25 All other systems are negative, Exam: 19:25 Constitutional: This is a well developed, well nourished patient who is awake, alert, kb and in no acute distress. Head/Face: Normocephalic, atraumatic. ENT: Moist Mucous membranes Cardiovascular: Regular rate Respiratory: Respirations even and unlabored. No increased work of breathing. Talking in full sentences Skin: Warm, dry with normal turgor. Normal color. MS/ Extremity: Pulses equal, no cyanosis. Neurovascular intact. Full, normal range of motion. Neuro: Awake and alert, GCS 15, oriented to person, place, time, and situation. Moves all extremities. Normal gait. 19:25 Abdomen/GI: Inspection: abdomen appears normal, Bowel sounds: normal, Palpation: soft, in all quadrants, moderate abdominal tenderness, in the right lower quadrant, Vital Signs: 17:34 BP 124 / 85; Pulse 81; Resp 18 S; Temp 98.6; Pulse Ox 100% on R/A; Weight 81.65 kg; cm10 Height 5 ft. 2 in. ; Pain 10/10; 18:25 BP 147 / 106; Pulse 95; Resp 24; Pulse Ox 99% on R/A; ko1 17:34 Body Mass Index 32.92 (81.65 kg, 157.48 cm) cm10 17:34 Pain Scale: Adult cm10 MDM: 17:41 Patient medically screened. kb 19:26 Data reviewed: vital signs, nurses notes. kb 19:27 Differential diagnosis: appendicitis, diverticulitis, Dysmenorrhea, Ectopic , kb Endometriosis, non-specific abd pain, Ovarian Torsion. Test considered but Not performed: Ultrasound US to rule out ovarian torsion considered and ordered, but pt prefers to go home. States she just wanted to make sure it wasn't her appendix. Counseling: I had a detailed discussion with the patient and/or guardian regarding the historical points, exam findings, and any diagnostic results supporting the discharge/admit diagnosis, lab results, radiology results, the need for outpatient follow up, a family practitioner, to return to the emergency department if symptoms worsen or persist or if there are any questions or concerns that arise at home. 10 17:39 Order name: CBC with Diff; Complete Time: 18:22 cm10 08/19 17:39 Order name: CMP; Complete Time: 18:47 cm10 08/19 17:39 Order name: Lipase; Complete Time: 18:47 cm10 08/19 17:39 Order name: Test, Urine; Complete Time: 18:25 cm10 08/19 17:39 Order name: Urinalysis w/ reflexes; Complete Time: 18:24 cm10 08/19 17:39 Order name: CT Abd/Pelvis - IV Contrast Only; Complete Time: 19:15 cm10 08/19 17:39 Order name: IV Saline Lock; Complete Time: 17:58 cm10 08/19 17:39 Order name: Labs collected and sent; Complete Time: 17:58 cm10 Administered Medications: 17:58 Drug: NS 0.9% IV 1000 ml IV at 1000 ml once Route: IV; Rate: 1000 ml; Site: right cm10 antecubital; 19:36 Follow up: Response: No adverse reaction; IV Status: Completed infusion; IV Intake: as6 1000ml 17:58 Drug: Ondansetron IVP 4 mg IVP once; over 2 minutes Route: IVP; Site: right antecubital;cm10 19:36 Follow up: Response: No adverse reaction as6 18:07 Drug: fentaNYL (PF) IVP 25 mcg IVP once Route: IVP; Site: right antecubital; cm10 19:36 Follow up: Response: No adverse reaction as6 Disposition: 21:51 Co-signature as Attending Physician, Leo Mccallum MD I reviewed the patient's care rt provided by the Advanced Practice Provider and agree with the diagnosis and treatment plan. Disposition Summary: 08/19/23 19:28 Discharge Ordered Notes: Location: Home kb Condition: Stable kb Diagnosis - Lower abdominal pain, unspecified kb Followup: kb - With: Emergency Department - When: As needed - Reason: Worsening of condition Followup: kb - With: Private Physician - When: 2 - 3 days - Reason: Recheck today's complaints, Continuance of care, Re-evaluation by your physician Discharge Instructions: - Discharge Summary Sheet kb - Abdominal Pain, Adult, [id number] kb Forms: - Medication Reconciliation Form kb - Thank You Letter kb - Antibiotic Education kb - Prescription Opioid Use kb - Patient Portal Instructions kb - Leadership Thank You Letter kb Signatures: Dispatcher [employer] Marisol Lomas, DOPE HOUSE OPERATOR HELPER-C DOPE HOUSE OPERATOR HELPER-Leo Fitzpatrick MD MD rt Sandra Solorio, RN RN cm10 Teddy Carlson RN as6
--- NOTE | 2023-08-19 19:29 | ER ---
Nurse's Notes [facility] Name: Anna Eugene Age: 33 yrs Sex: Female : 1990 Arrival Date: 08/19/2023 Time: 17:18 Bed DIS3 Private MD: Diagnosis: Lower abdominal pain, unspecified Presentation: 08/19 17:34 Chief complaint: Patient states: RLQ abdominal pain onset this morning. Pt states that cm10 the pain has been getting worse and radiates to her back and belly button. Pt reports nausea and constipation. No urinary symptoms, no fever. Coronavirus screen: Vaccine status: Patient reports being unvaccinated. Client denies travel out of the [place] in the last 14 days. Ebola Screen: Patient denies travel to an Ebola-affected area in the 21 days before illness onset. No symptoms or risks identified at this time. Initial Sepsis Screen: Does the patient meet any 2 criteria? No. Patient's initial sepsis screen is negative. Does the patient have a suspected source of infection? No. Patient's initial sepsis screen is negative. Risk Assessment: Do you want to hurt yourself or someone else? Patient reports no desire to harm self or others. Onset of symptoms was August 19, 2023. 17:34 Method Of Arrival: Ambulatory cm10 17:34 Acuity: KALYANI 3 cm10 Triage Assessment: 17:36 General: Appears in no apparent distress. uncomfortable, Behavior is calm, cooperative. cm10 Pain: Complains of pain in right lower quadrant Pain radiates to umbilical area and posterior aspect of right lateral abdomen. Neuro: No deficits noted. Level of Consciousness is awake, alert, obeys commands, Oriented to person, place, time, situation. Cardiovascular: No deficits noted. Patient's skin is warm and dry. Respiratory: No deficits noted. Airway is patent Respiratory effort is even, unlabored, Respiratory pattern is regular, symmetrical. GI: No deficits noted. Abdomen is flat, non-distended, Reports constipation, nausea. : No deficits noted. No signs and/or symptoms were reported regarding the genitourinary system. 17:59 GI: Abdomen has rebound tenderness in right lower quadrant. 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 - Social history:: Smoking status: Patient denies any tobacco usage or history of. Screenin:59 [facility] ED Fall Risk Assessment (Adult) History of falling in the last 3 months, cm10 including since admission No falls in past 3 months (0 pts) Confusion or Disorientation No (0 pts) Intoxicated or Sedated No (0 pts) Impaired Gait No (0 pts) Mobility Assist Device Used No (0 pt) Altered Elimination No (0 pt). [facility] ED Fall Risk Assessment (Adult) Score/Fall Risk Level 0 - 2 = Low Risk Oriented to surroundings, Maintained a safe environment, Hourly rounding (assess needs \T\ fall precautionary measures) done. Abuse screen: Denies threats or abuse. Denies injuries from another. Nutritional screening: No deficits noted. Tuberculosis screening: No symptoms or risk factors identified. Assessment: 18:25 General: Appears distressed, uncomfortable, Behavior is appropriate for age, anxious, ko1 crying. Pain: Complains of pain in lumbar area and posterior aspect of right lateral abdomen and right lower quadrant. Neuro: No deficits noted. Cardiovascular: No deficits noted. Respiratory: No deficits noted. GI: No deficits noted. : No deficits noted. EENT: No deficits noted. Derm: No deficits noted. Musculoskeletal: No deficits noted. Vital Signs: 17:34 BP 124 / 85; Pulse 81; Resp 18 S; Temp 98.6; Pulse Ox 100% on R/A; Weight 81.65 kg; cm10 Height 5 ft. 2 in. ; Pain 10/10; 18:25 BP 147 / 106; Pulse 95; Resp 24; Pulse Ox 99% on R/A; ko1 17:34 Body Mass Index 32.92 (81.65 kg, 157.48 cm) cm10 17:34 Pain Scale: Adult cm10 ED Course: 17:20 Patient arrived in ED. mg5 17:[address] [facility] kb 17:20 Leo Mccallum MD is Attending Physician. kb 17:36 Triage completed. cm10 17:37 Arm band placed on Patient placed in waiting room. cm10 17:58 CBC with Diff Sent. cm10 17:58 CMP Sent. cm10 17:58 Lipase Sent. cm10 17:58 Test, Urine Sent. cm10 17:58 Urinalysis w/ reflexes Sent. cm10 17:59 Patient has correct armband on for positive identification. Provided Education on: ER cm10 process and procedures.. 17:59 Initial lab(s) drawn, by ri, sent to lab. Urine collected: clean catch specimen, clear. cm10 Inserted saline lock: 20 gauge in right antecubital area, using aseptic technique. Blood collected. 18:09 Maryse Garcia, RN is Primary Nurse. ko1 18:58 CT Abd/Pelvis - IV Contrast Only In Process Unspecified. EDMS 19:36 No provider procedures requiring assistance completed. IV discontinued, intact, as6 bleeding controlled, No redness/swelling at site. Pressure dressing applied. Administered Medications: 17:58 Drug: NS 0.9% IV 1000 ml IV at 1000 ml once Route: IV; Rate: 1000 ml; Site: right cm10 antecubital; 19:36 Follow up: Response: No adverse reaction; IV Status: Completed infusion; IV Intake: as6 1000ml 17:58 Drug: Ondansetron IVP 4 mg IVP once; over 2 minutes Route: IVP; Site: right antecubital;cm10 19:36 Follow up: Response: No adverse reaction as6 18:07 Drug: fentaNYL (PF) IVP 25 mcg IVP once Route: IVP; Site: right antecubital; cm10 19:36 Follow up: Response: No adverse reaction as6 Medication: 17:59 VIS not applicable for this client. cm10 Intake: 19:36 IV: 1000ml; Total: 1000ml. as6 Outcome: 19:28 Discharge ordered by MD. waller 19:35 Discharged to home ambulatory, as6 19:35 Condition: stable 19:35 Discharge instructions given to patient, Instructed on discharge instructions, follow up and referral plans. Demonstrated understanding of instructions, follow-up care, 19:37 Patient left the ED. as6 Signatures: Dispatcher [employer] EDMS Marisol St, BRENNA HERNANDEZ-Teddy Walker RN LISBETH as6 Maryse Garcia, RN RN ko1 Sandra Solorio RN RN cm10 Yamileth Pozo mg5
[2023-08-19 19:50] VITALS: TEMP 98.6
[2023-08-19 19:51] VITALS: BP 147/106; O2SAT 99
== END 2023-08-19 19:37 | disposition home or self-care (01) ==
LOC: ER 17:18
DX: R10.31 Right lower quadrant pain (principal); Z88.5 Allergy status to narcotic agent
CPT/HCPCS: 96361; 85025; 81001; 36415; 81025; 83690; 80053; 74177; 96375; 96374; 99284; Q9967; J3010; J2405; J7030

== ENCOUNTER 2024-05-06 02:42 | Emergency (ER) | payer BC, OTHER ==
[2024-05-06] MEDS ORDERED: ONDANSETRON 4 MG/2 ML VIAL ONE (02:56)
[2024-05-06] MEDS ORDERED: NA CHLORIDE 0.9% 1,000 ML ONE (02:56)
[2024-05-06] MEDS ORDERED: KETOROLAC 30 MG/ML INJ ONE (02:56)
[2024-05-06 03:32] LABS: Absolute Basophils 0.1 K/uL (0-0.5); Absolute Eosinophils 0.2 K/uL (0-0.5); Absolute Lymphocytes (CBC) 2.7 K/uL (0.7-4.9); Absolute Monocytes 0.5 K/uL (0.1-1.3); Absolute Neutrophil 4.8 K/uL (1.8-8.0); Basophils % 0.8 % (0-1.3); Eosinophils % 2.3 % (0-4.4); Hematocrit 37.8 % (36.0-45.0); Hemoglobin 13.6 g/dL (12.0-15.0); Lymphocytes % 33.1 % (15.3-44.8); MCH 30.7 pg (27.0-35.0); MCV 85.2 fL (80-100); Monocytes % 6.1 % (3.3-12.3); Neutrophils % 57.7 % (41.7-73.7); Platelets 274 thou/uL (152-406); RBC Red Blood Cell Count 4.43 M/uL (3.86-4.86); Red Cell Distribution Width 13.8 % (12.1-15.2)
[2024-05-06 03:34] LABS: Albumin 3.8 g/dL (3.4-5.0); Albumin/Globulin Ratio 1.1 (1.1-1.8); Anion Gap 10.4 mEq/L (5.0-15.0); Bilirubin Total 0.5 mg/dL (0.2-1.0); Globulin 3.4 g/dL (2.3-3.5); Potassium 3.4 mEq/L (3.5-5.1); Protein, Total 7.2 g/dL (6.4-8.2)
--- NOTE | 2024-05-06 05:26 | EDPHYS ---
Physician Documentation [facility] Name: Anna Eugene Age: 34 yrs Sex: Female : 1990 Arrival Date: 05/06/2024 Time: 02:42 Bed 5 Private MD: ED Physician Gio Momin HPI: 05/06 03:03 This 34 yrs old Female presents to ER via Wheelchair with complaints of Abdominal Pain, sp3 Nausea/Vomiting, Weakness, LOC IN BATHROOM. 03:03 34-year-old female with a history of lupus, depression presents to the ED with chief sp3 complaint lower abdominal pain started this evening consisting of lower abdominal cramping. Patient endorses nausea. She denies headache, fever, URI symptoms, chest pain, shortness of breath, vomiting, diarrhea, back pain, dysuria, LEAD DIE MOLDER symptoms, urinary frequency, visualized hematuria with syncope, near syncope, rash, known sick contacts, travel history, prolonged immobilization, or any other signs or symptoms on ROS at this time.. Historical: - Allergies: 02:57 Morphine (Itching); jb4 02:57 fentanyl (Can't breathe); jb4 - PMHx: 02:57 Depression; Hypothyroidism; Lupus; pericardial effusion; jb4 - PSHx: 02:57 breast enlargement; section; liposuction; tubal ligation with reversal; Tummy jb4 tuck; - Immunization history:: Adult Immunizations up to date. - Infectious Disease History:: Denies. - Social history:: Smoking status: Patient denies any tobacco usage or history of. ROS: 03:03 Constitutional: Negative for fever, chills, and weight loss, Eyes: Negative for injury, sp3 pain, redness, and discharge, ENT: Negative for injury, pain, and discharge, Neck: Negative for injury, pain, and swelling, Cardiovascular: Negative for chest pain, palpitations, and edema, Respiratory: Negative for shortness of breath, cough, wheezing, and pleuritic chest pain, Back: Negative for injury and pain, : Negative for injury, bleeding, discharge, and swelling, MS/Extremity: Negative for injury and deformity, Skin: Negative for injury, rash, and discoloration, Neuro: Negative for headache, weakness, numbness, tingling, and seizure, Psych: Negative for depression, anxiety, suicide ideation, homicidal ideation, and hallucinations, Allergy/Immunology: Negative for hives, rash, and allergies, Endocrine: Negative for neck swelling, polydipsia, polyuria, polyphagia, and marked weight changes, Hematologic/Lymphatic: Negative for swollen nodes, abnormal bleeding, and unusual bruising, 03:03 All other systems are negative, Exam: 03:04 Constitutional: This is a well developed, well nourished patient who is awake, alert, sp3 and in no acute distress. Head/Face: Normocephalic, atraumatic. Eyes: Pupils equal round and reactive to light, extra-ocular motions intact. Lids and lashes normal. Conjunctiva and sclera are non-icteric and not injected. Cornea within normal limits. Periorbital areas with no swelling, redness, or edema. Neck: Trachea midline, no thyromegaly or masses palpated, and no cervical lymphadenopathy. Supple, full range of motion without nuchal rigidity, or vertebral point tenderness. No Meningismus. Chest/axilla: Normal chest wall appearance and motion. Nontender with no deformity. No lesions are appreciated. Cardiovascular: Regular rate and rhythm with a normal S1 and S2. No gallops, murmurs, or rubs. Normal PMI, no JVD. No pulse deficits. Respiratory: Lungs have equal breath sounds bilaterally, clear to auscultation and percussion. No rales, rhonchi or wheezes noted. No increased work of breathing, no retractions or nasal flaring. Back: No spinal tenderness. No costovertebral tenderness. Full range of motion. Skin: Warm, dry with normal turgor. Normal color with no rashes, no lesions, and no evidence of cellulitis. MS/ Extremity: Pulses equal, no cyanosis. Neurovascular intact. Full, normal range of motion. Neuro: Awake and alert, GCS 15, oriented to person, place, time, and situation. Cranial nerves II-XII grossly intact. Motor strength 5/5 in all extremities. Sensory grossly intact. Cerebellar exam normal. Normal gait. Psych: Awake, alert, with orientation to person, place and time. Behavior, mood, and affect are within normal limits. 03:04 Abdomen/GI: Lower abdominal pain to palpation without peritoneal signs, rebound or guarding. Nonsurgical abdomen., Vital Signs: 02:55 BP 120 / 94; Pulse 80; Resp 24; Temp 97.3(O); Pulse Ox 100% on R/A; Weight 72.57 kg jb4 (R); Height 5 ft. 2 in. (R); Pain 10/10; 04:55 BP 90 / 54; Pulse 77; Pulse Ox 99% on R/A; tm6 05:34 BP 100 / 75; Pulse 74; Resp 19; Temp 97.3(TE); Pulse Ox 100% on R/A; Pain 0/10; tm6 02:55 Body Mass Index 29.26 (72.57 kg, 157.48 cm) jb4 02:55 Pain Scale: Adult jb4 05:34 Pain Scale: Adult tm6 MDM: 02:50 Patient medically screened. sp3 03:04 Data reviewed: vital signs, nurses notes, old medical records, lab test result(s), sp3 radiologic studies. ED course: 34-year-old female with lower abdominal pain. Differential diagnosis includes intestinal cramping, constipation, appendicitis, UTI/pyelonephritis spectrum, ovarian pathology, kidney stone, among others. I am entirely suspicious of sepsis, shock, aortic pathology, ovarian torsion, or any other critical process at this time. Workup will include laboratory values, urine analysis and CT scan of the abdomen pelvis with IV contrast. Disposition pending workup and patient course. Patient is allergic to narcotics and therefore we will use ketorolac IV and ondansetron IV for her symptoms.. 05:25 ED course: Laboratory values within normal limits. CT demonstrates colitis mild in sp3 nature. We will discharge patient home on antibiotics.. 05/06 02:51 Order name: CBC with Diff; Complete Time: 03:36 3 05/06 02:51 Order name: CMP; Complete Time: 03:36 05/06 02:51 Order name: Lipase; Complete Time: 03:36 05/06 02:51 Order name: Test, Urine; Complete Time: 05:35 sp05/06 02:51 Order name: Urinalysis w/ reflexes; Complete Time: 05:35 05/06 02:51 Order name: CT Abd/Pelvis - IV Contrast Only 3 05/06 02:51 Order name: IV Saline Lock; Complete Time: 03:12 3 05/06 02:51 Order name: Labs collected and sent; Complete Time: 03:12 sp3 Administered Medications: 03:04 Not Given (Physician Discretion; patient reports allergyy): morphineor iv 4 mg IVP once tm6 over 4 mins 03:12 Drug: NS 0.9% IV 1000 ml IV at 1 bolus Per protocol; 1000 mL bolus Route: IV; Rate: 1 tm6 bolus; Site: left antecubital; 05:20 Follow up: IV Status: Completed infusion; IV Intake: 1000ml tm6 03:12 Drug: Ondansetron IVP 4 mg IVP once; over 2 minutes Route: IVP; Site: left antecubital; tm6 05:20 Follow up: Response: Marked relief of symptoms tm6 03:12 Drug: Ketorolac IVP 30 mg IVP once Route: IVP; Site: left antecubital; tm6 05:20 Follow up: Response: Marked relief of symptoms tm6 Disposition Summary: 05/06/24 05:26 Discharge Ordered Notes: Location: Home sp3 Condition: Stable sp3 Diagnosis - Abdominal pain, colitis, nausea sp3 Followup: sp3 - With: Private Physician - When: Upon discharge from the Emergency Department - Reason: Continuance of care Discharge Instructions: - Discharge Summary Sheet sp3 - Colitis sp3 Forms: - Medication Reconciliation Form sp3 - Antibiotic Education sp3 - Prescription Opioid Use sp3 - Patient Portal Instructions sp3 - Leadership Thank You Letter sp3 Prescriptions: - Cipro 500 mg Oral Tablet - take 1 tablet ORAL route every 12 hours for 10 days; 20 tablet; Refills: 0, sp3 Product Selection Permitted - Flagyl 500 mg Oral Tablet - take 1 tablet ORAL route every 8 hours for 10 days; 30 tablet; Refills: 0, sp3 Product Selection Permitted - Tramadol 50 mg Oral Tablet - take 1 tablet ORAL route every 8 hours as needed; 12 tablet; Refills: 0, sp3 Product Selection Permitted - ondansetron 8 mg Oral Tablet,disintegrating - take 1 tablet ORAL route every 12 hours; 15 tablet; Refills: 0, Product sp3 Selection Permitted Signatures: Dispatcher [employer] EDJavier Anaya RN RN jb4 Gio Momin MD MD sp3 Diya Agustin RN RN tm6 Corrections: (The following items were deleted from the chart) 02:52 02:52 CBC+H.LAB.BRZ ordered. EDMS EDMS 02: 02:52 COMPREHENSIVE METABOLIC PANEL+C.LAB.BRZ ordered. EDMS EDMS 02: 02:52 LIPASE+C.LAB.BRZ ordered. EDMS EDMS 02: 02:52 Test, Urine+UC.LAB.BRZ ordered. EDMS EDMS 02: 02:52 Urinalysis+U.LAB.BRZ ordered. EDMS EDMS
--- NOTE | 2024-05-06 05:26 | ER ---
Nurse's Notes [facility] Name: Anna Eugene Age: 34 yrs Sex: Female : 1990 Arrival Date: 05/06/2024 Time: 02:42 Bed 5 Private MD: Diagnosis: Abdominal pain, colitis, nausea Presentation: 05/06 02:55 Chief complaint: Patient states: I woke up with severe pelvic pain. I thought I was jb4 going to vomit and went to the restroom. I got dizzy and light headed. I laid down and guess I passed out. I crawled to my daughters room to get help. Coronavirus screen: At this time, the client does not indicate any symptoms associated with coronavirus-19. Ebola Screen: No symptoms or risks identified at this time. Initial Sepsis Screen: Does the patient meet any 2 criteria? RR > 20 per min. Yes Does the patient have a suspected source of infection? No. Patient's initial sepsis screen is negative. Risk Assessment: Do you want to hurt yourself or someone else? Patient reports no desire to harm self or others. Onset of symptoms was May 06, 2024. Transition of care: patient was not received from another setting of care. 02:55 Method Of Arrival: Wheelchair jb4 02:55 Acuity: KALYANI 3 jb4 Historical: - Allergies: 02:57 Morphine (Itching); jb4 02:57 fentanyl (Can't breathe); jb4 - PMHx: 02:57 Depression; Hypothyroidism; Lupus; pericardial effusion; jb4 - PSHx: 02:57 breast enlargement; section; liposuction; tubal ligation with reversal; Tummy jb4 tuck; - Immunization history:: Adult Immunizations up to date. - Infectious Disease History:: Denies. - Social history:: Smoking status: Patient denies any tobacco usage or history of. Screenin:13 [facility] ED Fall Risk Assessment (Adult) History of falling in the last 3 months, tm6 including since admission Yes- physiologic fall (2 pts) Confusion or Disorientation No (0 pts) Intoxicated or Sedated No (0 pts) Impaired Gait No (0 pts) Mobility Assist Device Used No (0 pt) Altered Elimination No (0 pt) Score/Fall Risk Level 0 - 2 = Low Risk Oriented to surroundings, Maintained a safe environment, Educated pt \T\ family on fall prevention, incl call for assistance when getting out of bed. Abuse screen: Denies threats or abuse. Denies injuries from another. Nutritional screening: No deficits noted. Tuberculosis screening: No symptoms or risk factors identified. Assessment: 02:49 General: Appears uncomfortable, Behavior is anxious, crying, restless. Pain: Complains ha1 of pain in pelvis Pain does not radiate. Pain currently is 10 out of 10 on a pain scale. Quality of pain is described as aching, Pain began suddenly. Neuro: Level of Consciousness is awake, alert, obeys commands, Oriented to person, place, time, situation. Cardiovascular: Capillary refill < 3 seconds Patient's skin is warm and dry. Respiratory: Airway is patent Respiratory effort is even, unlabored, Respiratory pattern is regular, symmetrical. GI: Bowel sounds present X 4 quads. Abdomen is tender to palpation in suprapubic area Reports constipation, nausea, no bowel movement for a week. : No signs and/or symptoms were reported regarding the genitourinary system. Derm: Skin is moist, Skin is pink, warm \T\ dry. Musculoskeletal: Circulation, motion, and sensation intact. Range of motion: intact in all extremities. 04:55 Reassessment: Patient and/or family updated on plan of care and expected duration. Pain tm6 level reassessed. Patient is alert, oriented x 3, equal unlabored respirations, skin warm/dry/pink. Patient states feeling better. 05:34 Reassessment: Patient and/or family updated on plan of care and expected duration. Pain tm6 level reassessed. Patient is alert, oriented x 3, equal unlabored respirations, skin warm/dry/pink. Vital Signs: 02:55 BP 120 / 94; Pulse 80; Resp 24; Temp 97.3(O); Pulse Ox 100% on R/A; Weight 72.57 kg jb4 (R); Height 5 ft. 2 in. (R); Pain 10/10; 04:55 BP 90 / 54; Pulse 77; Pulse Ox 99% on R/A; tm6 05:34 BP 100 / 75; Pulse 74; Resp 19; Temp 97.3(TE); Pulse Ox 100% on R/A; Pain 0/10; tm6 02:55 Body Mass Index 29.26 (72.57 kg, 157.48 cm) jb4 02:55 Pain Scale: Adult jb4 05:34 Pain Scale: Adult tm6 ED Course: 02:45 Patient arrived in ED. gm2 02:50 Gio Momin MD is Attending Physician. sp3 02:57 Triage completed. jb4 02:57 Arm band placed on right wrist. jb4 03:00 Warm blanket given. Pillow given. ha1 03:12 CBC with Diff Sent. tm6 03:12 CMP Sent. tm6 03:12 Lipase Sent. tm6 03:12 Inserted saline lock: 20 gauge in left antecubital area, using aseptic technique. tm6 03:13 Patient has correct armband on for positive identification. Bed in low position. Call tm6 light in reach. Side rails up X2. Provided Education on: use of call workman. Client placed on continuous cardiac and pulse oximetry monitoring. NIBP monitoring applied. Pulse ox on. NIBP on. Door closed. Noise minimized. 03:55 CT Abd/Pelvis - IV Contrast Only In Process Unspecified. EDMS 05:20 Test, Urine Sent. tm6 05:20 Urinalysis w/ reflexes Sent. tm6 05:34 Diya Agustin, RN is Primary Nurse. tm6 05:35 No provider procedures requiring assistance completed. IV discontinued, intact, tm6 bleeding controlled, No redness/swelling at site. Pressure dressing applied. Administered Medications: 03:04 Not Given (Physician Discretion; patient reports allergyy): morphineor iv 4 mg IVP once tm6 over 4 mins 03:12 Drug: NS 0.9% IV 1000 ml IV at 1 bolus Per protocol; 1000 mL bolus Route: IV; Rate: 1 tm6 bolus; Site: left antecubital; 05:20 Follow up: IV Status: Completed infusion; IV Intake: 1000ml tm6 03:12 Drug: Ondansetron IVP 4 mg IVP once; over 2 minutes Route: IVP; Site: left antecubital; tm6 05:20 Follow up: Response: Marked relief of symptoms tm6 03:12 Drug: Ketorolac IVP 30 mg IVP once Route: IVP; Site: left antecubital; tm6 05:20 Follow up: Response: Marked relief of symptoms tm6 Medication: 05:35 VIS not applicable for this client. tm6 Intake: 05:20 IV: 1000ml; Total: 1000ml. tm6 Outcome: 05:26 Discharge ordered by . sp3 05:35 Discharged to home ambulatory, tm6 05:35 Condition: stable 05:35 Discharge instructions given to patient, Instructed on discharge instructions, follow up and referral plans. medication usage, Demonstrated understanding of instructions, follow-up care, medications, Prescriptions given X 4, 05:36 Patient left the ED. tm6 Signatures: Dispatcher [employer] EDMS Javier Blandon, RN RN jb4 Gio Momin MD MD sp3 Diana Wang, LISBETH RN [email or web address] Arabella Lara 2 Diya Agustin RN RN tm6
[2024-05-06 05:30] LABS: Sqamous Epithelial <5 /HPF (None Seen); Urine Bacteria None Seen /HPF (<20); Urine Bilirubin NEGATIVE (Negative); Urine Blood Negative (Negative); Urine Clarity Clear (Clear); Urine Color Light-Yellow (Yellow); Urine Culture Reflex Order NOT NEEDED; Urine Glucose NEGATIVE (Negative); Urine Ketones NEGATIVE (Negative); Urine Microscopic Reflex YN ORDER UMIC; Urine Mucus Slight /HPF (None Seen); Urine Nitrite NEGATIVE (Negative); Urine Protein NEGATIVE (Negative); Urine RBC <5 /HPF (None Seen); Urine Urobilinogen Normal (Normal); Urine WBC <5 /HPF (<5)
[2024-05-06 05:31] LABS: Specific Gravity > 1.030 (1.005-1.030)
[2024-05-06 06:13] VITALS: BP 100/75; TEMP 97.3; O2SAT 100
--- NOTE | 2024-05-06 11:47 | RAD REPORT ---
EXAM DESCRIPTION: CT - Abdomen Pelvis W Contrast - 05/06/2024 7:10 am CLINICAL HISTORY: The patient is 34 years old and is Female; ABD PAIN TECHNIQUE: Axial computed tomography images of the abdomen and pelvis with intravenous contrast. S agittal and coronal reformatted images were created and reviewed. This CT exam was performed using one or more of the following dose reduction techniques: automated exposure control, adjustment of t he mA and/or kV according to patient size, and/or use of iterative reconstruction technique. COMPARISON: August 19, 2023. FINDINGS: Lung bases: Unremarkable. No mass. No consolidation. ABDOMEN: Liver: Unremarkable. No mass. Gallbladder and bile ducts: Unremarkable. No calcified stones. No ductal dilation. Pancreas: No findings to suggest acute pancreatitis. No mass visualized. No ductal dilation. Spleen: Unremarkable. No splenomegaly. Adrenals: Unremarkable. No mass. Kidneys and ureters: Unremarkable. No solid mass. No hydronephrosis. Stomach and bowel: Stool throughout the lumen of the colon. There are areas of bowel: Wall thicke mary without pericolonic inflammation. No small bowel dilatation or obstruction. PELVIS: Appendix: The visualized appendix is normal. No pericecal inflammation to suggest acute appendici tis. Bladder: Unremarkable. No mass. Reproductive: 3.0 cm right ovarian simple cyst. Uterus is present. There are anterior abdominal wall adhesions at the uterine fundus. Left ovary is unremarkable. ABDOMEN and PELVIS: Intraperitoneal space: Unremarkable. No free air. No significant fluid collection. Bones/joints: No acute fracture visualized. No dislocation. Soft tissues: There are bilateral breast implants. Vasculature: Unremarkable. No abdominal aortic aneurysm. Lymph nodes: No pathologically enlarged lymph nodes. IMPRESSION: 1. Stool throughout the lumen of the colon. There are areas of colon wall thickening w ithout pericolonic inflammation. Possibility of mild/early colitis is not excluded. Clinical correlat ion suggested. 2. Right ovarian simple-appearing cyst measuring 3 cm. No follow-up imaging is recommended. Reference: JACR 2019;17(2):[id number] Electronically signed by: Joycelyn Hummel MD 05/06/2024 05:09 AM CDT RP ND Due to temporary technical issues with the PACS/Fluency reporting system, reports are being signed by the in house radiologist without review as a courtesy to ensure prompt reporting. The interpreting r adiologist is fully responsible for the content of the report.
== END 2024-05-06 05:36 | disposition home or self-care (01) ==
LOC: ER 02:42
DX: K52.9 Noninfective gastroenteritis and colitis, unspecified (principal); R11.0 Nausea; Z88.5 Allergy status to narcotic agent
CPT/HCPCS: 85025; 81001; 36415; 81025; 83690; 80053; 74177; Q9967; J2405; J7030; 96361; 96374; 96375; 99284

== ENCOUNTER 2025-06-16 15:02 | Emergency (ER) | payer BC, OTHER ==
[2025-06-16] MEDS ORDERED: FENTANYL CITR 100 MCG/2 ML ONE (15:26)
[2025-06-16] MEDS ORDERED: MORPHINE 2 MG/ML SYR ONE ×2 (15:30→15:57)
[2025-06-16 15:33] LABS: Absolute Lymphocytes (CBC) 1.4 K/uL (0.7-4.9); Hematocrit 39.0 % (36.0-45.0); Hemoglobin 13.6 g/dL (12.0-15.0); MCH 30.6 pg (27.0-35.0); MCHC 34.8 g/dL (32.0-36.0); MCV 88.0 fL (80-100); MPV 7.9 fL (7.6-11.3); Nucleated RBC Absolute Count 0.0 (0-0); Nucleated Red Blood Cells % 0.0 % (0-0); RBC Red Blood Cell Count 4.43 M/uL (3.86-4.86); White Blood Count 5.20 thou/uL (4.3-10.9)
[2025-06-16] MEDS ORDERED: DIPHENHYDRAMINE 50 MG/ML VIAL ONE (15:58)
[2025-06-16 16:09] LABS: Anion Gap 13.5 mEq/L (5.0-15.0); BUN Blood Urea Nitrogen 8.0 mg/dL (7-18); Glucose Level 121.0 mg/dL (74-106); HCG, Quantitative 3956.0 mIU/mL (1-3); Potassium 3.5 mEq/L (3.5-5.1)
--- NOTE | 2025-06-16 16:44 | RAD REPORT ---
EXAM: Transvaginal OB HISTORY: VAGINAL BLEEDING COMPARISON: None TECHNIQUE: Multiple grayscale and color Doppler images were obtained in a transvaginal pelvic ultraso und. Spectral analysis of the Doppler waveforms of the ovaries were performed. FINDINGS: UTERUS: No IUP identified. The uterus measures 9.6 x 3 x 3.4 cm. Mild free fluid is seen in the pelvis. Neither ovary was visualized. Exam terminated early due to patient discomfort. IMPRESSION: No IUP identified. In the setting of a positive hCG level, this would indicate of unknown l ocation. Serial hCG level measurements and short term follow-up is recommended. Nonspecific pelvic free fluid. Neither ovary visualized. The exam was terminated early due to patient discomfort.
--- NOTE | 2025-06-16 17:08 | EDPHYS ---
Physician Documentation [facility] Name: Anna Eugene Age: 35 yrs Sex: Female : 1990 Arrival Date: 06/16/2025 Time: 15:02 Bed 7 Private MD: ED Physician Gio Momin HPI: 06/16 15:35 This 35 yrs old Female presents to ER via Ambulatory with complaints of 6 weeks cr8 , Abdominal Pain. 15:35 Patient is a 35-year-old female comes emergency room complaining of severe lower cr8 abdominal pain. Began about 30 minutes prior to arrival. Reports she is 6 weeks . LMP was May 07. Reports she has had 4 children. Reports history of tubal ligation and reversal. No previous ectopic . Denies nausea vomiting syncope. She is having no vaginal bleeding at this time. Initially refuses pain medication. Denies dysuria or hematuria. Has never had pain like this before.. Historical: - Allergies: 15:14 Fentanyl (Can't breathe); hb 15:14 Morphine (Itching); hb - Home Meds: 15:31 Prozac 20 mg Oral cap 1 cap once daily [Active]; Synthroid 75 mcg Oral tab 1 tab once hb daily [Active]; - PMHx: 15:14 Depression; Hypothyroidism; Lupus; pericardial effusion; hb - PSHx: 15:14 breast enlargement; section; liposuction; tubal ligation with reversal; Tummy hb tuck; D\T\C (Tummy tuck); - Immunization history:: Adult Immunizations up to date. - Infectious Disease History:: Denies. - Social history:: Smoking status: Patient denies any tobacco usage or history of. ROS: 15:42 Constitutional: as per HPI cr8 15:42 Abdomen/GI: Positive for abdominal pain, Exam: 15:42 Skin: Warm, dry with normal turgor. Normal color with no rashes, no lesions, and no cr8 evidence of cellulitis. 15:42 Constitutional: The patient appears alert, awake, in obvious pain, uncomfortable, 15:42 Cardiovascular: Rate: Pulses: Pulses are 2+ in right radial artery and left radial artery. 15:42 Abdomen/GI: Inspection: abdomen appears normal, Palpation: moderate abdominal tenderness, in the suprapubic area, right lower quadrant and left lower quadrant, rebound tenderness, is appreciated in the suprapubic area, right lower quadrant and left lower quadrant, 15:42 Skin: Appearance: 18:08 Special observations: Patient dropped her BP and became near syncopal. Ordred 1L ns and cr8 one unit of PRBC. placed in [place]. FAST performed by Dr. Momin.. No free fluid was seen on FAST exam. Patient's blood pressure started to rebound. During this period she was also bradycardic. Suspect a vasovagal episode given that she was bradycardic and hypotensive. She was transferred in stable condition., Vital Signs: 15:12 BP 127 / 83; Pulse 91; Resp 18; Temp 98; Pulse Ox 100% on R/A; Pain 10/10; hb 16:19 BP 110 / 82; Pulse 75; Resp 18; Pulse Ox 100% on R/A; ph 17:55 BP 103 / 67; Pulse 74; Resp 16; Pulse Ox 98% on R/A; hb 18:02 BP 67 / 38; Pulse 77; Resp 18; Pulse Ox 100% on R/A; ph 18:24 BP 136 / 90; Pulse 84; Resp 18; Temp 97.2; Pulse Ox 98% on R/A; ph 15:12 Pain Scale: Adult hb Procedures: 16:30 Performed Reevaluation. Ultrasound did not show any evidence of obvious ectopic cr8 however the ovaries were not able to be visualized. Patient appears more comfortable in the bed at this time. Palpated abdomen she still having significant tenderness. Vital signs are okay. Will arrange transfer.. 17:52 Ultrasound: pelvic POCUS, no IUP, no large amount of free fluid. cr8 MDM: 15:13 Medical Screening Exam initiated cr8 16:30 Management of patient was discussed with the following: Attending ER physician. cr8 17:13 Data reviewed: vital signs, nurses notes, lab test result(s), radiologic studies, I cr8 have discussed the patient's presentation/case with the attending Emergency Department Physician;. Medication response: morphine partially relieved the patient's pain. ED course: Patient came in for lower abdominal pain in early . In concern was for ectopic . Went ahead and ordered CBC BMP urinalysis hCG quantitative and transvaginal ultrasound. Patient's beta-hCG quant came back over 3900. Due to pain and inability to tolerate the ultrasound they were not able to visualize the ovaries. However there is a small amount of free fluid in the pelvis. Given this finding we will go ahead and transfer the patient to OB for further evaluation. On my reexamination the patient still has significant amount of tenderness and rebound palpation. Did considered urinary tract infection, appendicitis, bowel rupture, ovarian torsion. However given the possibility of ectopic that ruptured these diagnosis is can be evaluated once the emergent condition is excluded. Discussed with the patient the need for transfer. She verbalized understanding. She received morphine 2 mg IV x 2 for her pain. Case was discussed with Dr. Cobb at [facility]. Went over the beta-hCG quant with her and the ultrasound findings which include free fluid in the pelvis and the inability to visualize ovaries.. 18:10 ED course: Patient seen by me once blood pressure dropped to 84 systolic. FAST exam sp3 performed which demonstrates no free fluid. 1 unit of O- blood will be hung prior to transfer. [facility] notified by midlevel provider.. 06/16 15:15 Order name: CBC with Diff; Complete Time: 15:35 cr8 06/16 15:15 Order name: BMP; Complete Time: 16:12 cr8 06/16 15:15 Order name: HCG-Quantitative; Complete Time: 16:12 cr8 06/16 15:58 Order name: Test, Serum; Complete Time: 16:48 cr8 06/16 18:05 Order name: Type And Screen bd 06/16 18:10 Order name: RBC Leukored Pheresis EDNE 06/16 15:19 Order name: US Transvaginal Ob; Complete Time: 16:48 sp3 06/16 15:15 Order name: IV Saline Lock; Complete Time: 15:31 cr8 Administered Medications: 15:37 CANCELLED (Patient Refused): fentanyl (pf)50 mcg IVP once cr8 15:41 Drug: morphine IVP or IV 2 mg IVP once over 4 mins Route: IVP; Infused Over: 4 mins; ph Site: right antecubital; 18:26 Follow up: Response: No adverse reaction ph 16:05 Drug: morphine IVP or IV 2 mg IVP once over 4 mins Route: IVP; Infused Over: 4 mins; ph Site: right antecubital; 18:25 Follow up: Response: No adverse reaction ph 16:05 Drug: diphenhydrAMINE IVP 12.5 mg IVP once Route: IVP; Site: right antecubital; ph 18:25 Follow up: Response: No adverse reaction ph 18:05 Drug: NS 0.9% IV 1000 ml IV at 1000 ml once; to be given as a bolus over 60 minutes ph Route: IV; Rate: 1000 ml; Site: right antecubital; 18:25 Follow up: Response: No adverse reaction; IV Status: Completed infusion; IV Intake: ph 1000ml Disposition: 18:11 Co-signature as Attending Physician, Gio Momin MD I agree with the assessment and sp3 plan of care. I reviewed the patient's care provided by Advanced Practice Provider \T\ agree w/ the diagnosis \T\ care plan. I personally saw the pt \T\ performed a substantive portion of the visit, incldng all aspects of the (History/Exam/Medical Decision Making). Disposition Summary: 06/16/25 17:07 Transfer Ordered Notes: Transfer Location: [facility]-System cr8 Reason: Higher level of care cr8 Condition: Stable cr8 Problem: new cr8 Symptoms: have improved cr8 Accepting Physician: [facility]- Dr. Cobb(06/16/25 18:45) hb Diagnosis - Less than 8 weeks gestation of - of unknown location cr8 - Lower abdominal pain, unspecified cr8 Forms: - Medication Reconciliation Form cr8 - SBAR form cr8 Signatures: Dispatcher [employer] EDLuz Tan RN RN Desiree Eid RN RN Gio Momin MD MD sp3 Todd Kuo NP MOVIE MACHINE OPERATOR cr8 Corrections: (The following items were deleted from the chart) 15:15 15:15 CBC+H.LAB.BRZ ordered. EDMS EDMS 15:15 15:15 BASIC METABOLIC PANEL+C.LAB.BRZ ordered. EDMS EDMS 15:15 15:15 Test, Urine+UC.LAB.BRZ ordered. EDMS EDMS 15:19 15:19 Transvaginal Ob+US.RAD.BRZ ordered. EDMS EDMS 15:37 15:32 fentaNYL (PF) IVP 50 mcg IVP once ordered. cr8 cr8 17:13 17:07 [facility] cr8 cr8 18:34 18:08 Special observations: Patient dropped her BP and became near syncopal. Ordred 1L cr8 ns and [facility] by Dr. Momin.., cr8 18:45 17:13 [facility]- Dr. Cobb cr8 hb
--- NOTE | 2025-06-16 17:08 | ER ---
Nurse's Notes [facility] Name: Anna Eugene Age: 35 yrs Sex: Female : 1990 Arrival Date: 06/16/2025 Time: 15:02 Bed 7 Private MD: Diagnosis: Less than 8 weeks gestation of - of unknown location;Lower abdominal pain, unspecified Presentation: 06/16 15:12 Chief complaint: Sudden onset severe lower abdominal pain that started 30 mins ago. hb Reports she is approx 6 weeks , 4 living children and "a few miscarriages." LMP 05/07. Coronavirus screen: At this time, the client does not indicate any symptoms associated with coronavirus-19. Ebola Screen: No symptoms or risks identified at this time. Initial Sepsis Screen: Does the patient meet any 2 criteria? No. Patient's initial sepsis screen is negative. Does the patient have a suspected source of infection? No. Patient's initial sepsis screen is negative. Risk Assessment: Do you want to hurt yourself or someone else? Patient reports no desire to harm self or others. Onset of symptoms was June 16, 2025. 15:12 Method Of Arrival: Ambulatory hb 15:12 Acuity: KALYANI 2 hb Historical: - Allergies: 15:14 Fentanyl (Can't breathe); hb 15:14 Morphine (Itching); hb - Home Meds: 15:31 Prozac 20 mg Oral cap 1 cap once daily [Active]; Synthroid 75 mcg Oral tab 1 tab once hb daily [Active]; - PMHx: 15:14 Depression; Hypothyroidism; Lupus; pericardial effusion; hb - PSHx: 15:14 breast enlargement; section; liposuction; tubal ligation with reversal; Tummy hb tuck; D\\T\\C (Tummy tuck); - Immunization history:: Adult Immunizations up to date. - Infectious Disease History:: Denies. - Social history:: Smoking status: Patient denies any tobacco usage or history of. Screenin:16 [facility] ED Fall Risk Assessment (Adult) History of falling in the last 3 months, hb including since admission No falls in past 3 months (0 pts) Confusion or Disorientation No (0 pts) Intoxicated or Sedated No (0 pts) Impaired Gait No (0 pts) Mobility Assist Device Used No (0 pt) Altered Elimination No (0 pt) Score/Fall Risk Level 0 - 2 = Low Risk Oriented to surroundings, Maintained a safe environment, Educated pt \\T\\ family on fall prevention, incl call for assistance when getting out of bed. Abuse screen: Denies threats or abuse. Denies injuries from another. Nutritional screening: No deficits noted. Tuberculosis screening: No symptoms or risk factors identified. Assessment: 15:15 General: Appears distressed, Behavior is cooperative, anxious, restless. Pain: Pain hb currently is 10 out of 10 on a pain scale. Neuro: Level of Consciousness is awake, alert, obeys commands, Oriented to person, place, time, situation. Cardiovascular: Patient's skin is warm and dry. Respiratory: Respiratory effort is even, unlabored, Respiratory pattern is regular, symmetrical. GI: Reports lower abdominal pain. : No signs and/or symptoms were reported regarding the genitourinary system. EENT: No signs and/or symptoms were reported regarding the EENT system. Derm: Skin is pink, warm \\T\\ dry. Musculoskeletal: No signs and/or symptoms reported regarding the musculoskeletal system. 16:30 Reassessment: Patient appears in no apparent distress at this time. Patient and/or hb family updated on plan of care and expected duration. Pain level reassessed. Patient is alert, oriented x 3, equal unlabored respirations, skin warm/dry/pink. 17:56 Reassessment: Patient appears in no apparent distress at this time. Patient and/or hb family updated on plan of care and expected duration. Pain level reassessed. Patient is alert, oriented x 3, equal unlabored respirations, skin warm/dry/pink. 18:00 Reassessment: Pt returned from restroom, c/o dizziness, BP dropped to 76 systolic, ERP ph notified and at bedside for FAST exam, 1 unit emergency release PRBCs ordered, L NS administered via pressure bag. 18:15 Reassessment: One unit blood started, ok to transport to [facility] per Dr. Momin, blood hb handed off to [facility] Chaperone Mariya. Vital Signs: 15:12 BP 127 / 83; Pulse 91; Resp 18; Temp 98; Pulse Ox 100% on R/A; Pain 10/10; hb 16:19 BP 110 / 82; Pulse 75; Resp 18; Pulse Ox 100% on R/A; ph 17:55 BP 103 / 67; Pulse 74; Resp 16; Pulse Ox 98% on R/A; hb 18:02 BP 67 / 38; Pulse 77; Resp 18; Pulse Ox 100% on R/A; ph 18:24 BP 136 / 90; Pulse 84; Resp 18; Temp 97.2; Pulse Ox 98% on R/A; ph 15:12 Pain Scale: Adult hb ED Course: 15:03 Patient arrived in ED. im 15:03 Todd Kuo NP is PHCP. cr8 15:04 Gio Momin MD is Attending Physician. cr8 15:14 Triage completed. hb 15:14 Arm band placed on. hb 15:16 Bed in low position. Provided Education on: call light. hb 15:25 Initial lab(s) drawn, by me, sent to lab. Inserted saline lock: 18 gauge in right hb antecubital area, using aseptic technique. Blood collected. Flushed with 10 mL NS. 15:31 BMP Sent. hb 15:31 CBC with Diff Sent. hb 15:31 HCG-Quantitative Sent. hb 15:32 Desiree Eid, RN is Primary Nurse. hb 15:59 US Transvaginal Ob In Process Unspecified. EDMS 16:59 transfer to [facility] initiated by Jesse BACON. bd 17:12 pt accepted in transfer to [facility] L\\T\\D triage by dr Cobb admin approval given by [facility]. 18:05 Inserted saline lock: 18 gauge in left antecubital area, using aseptic technique. hb 18:26 No provider procedures requiring assistance completed. Patient transferred, IV remains ph in place. Administered Medications: 15:37 CANCELLED (Patient Refused): fentanyl (pf)50 mcg IVP once cr8 15:41 Drug: morphine IVP or IV 2 mg IVP once over 4 mins Route: IVP; Infused Over: 4 mins; ph Site: right antecubital; 18:26 Follow up: Response: No adverse reaction ph 16:05 Drug: morphine IVP or IV 2 mg IVP once over 4 mins Route: IVP; Infused Over: 4 mins; ph Site: right antecubital; 18:25 Follow up: Response: No adverse reaction ph 16:05 Drug: diphenhydrAMINE IVP 12.5 mg IVP once Route: IVP; Site: right antecubital; ph 18:25 Follow up: Response: No adverse reaction ph 18:05 Drug: NS 0.9% IV 1000 ml IV at 1000 ml once; to be given as a bolus over 60 minutes ph Route: IV; Rate: 1000 ml; Site: right antecubital; 18:25 Follow up: Response: No adverse reaction; IV Status: Completed infusion; IV Intake: ph 1000ml Medication: 15:16 VIS not applicable for this client. hb Intake: 18:25 IV: 1000ml; Total: 1000ml. ph Outcome: 17:07 ER care complete, transfer ordered by MD. malagon 18:42 Transferred by ground EMS [place]. to [facility] [place], ph 18:42 Condition: stable 18:42 Instructed on the need for transfer, 18:45 Patient left the ED. hb Signatures: Dispatcher [employer] EDMS Barb Greer Patricia RN RN Desiree Eid RN RN Mary Graf Christopher CAMP PROGRAM DIRECTOR CAMP PROGRAM DIRECTOR cr8 Corrections: (The following items were deleted from the chart) 15:15 15:12 Chief complaint: Sudden onset severe lower abdominal pain ttht started 30 mins hb ago. Reports she is approx 6 weeks , 4 living children and "a few miscarriages."
[2025-06-16] MEDS ORDERED: NA CHLORIDE 0.9% 1,000 ML ONE (18:03)
[2025-06-16] MEDS ORDERED: NA CHLORIDE 0.9% 250 ML ONE (18:09)
[2025-06-16 19:48] VITALS: BP 136/90; TEMP 97.2; O2SAT 98
== END 2025-06-16 18:45 | disposition short-term general hospital (02) ==
LOC: ER 15:02
PROC: 30233N1 Transfusion of Nonautologous Red Blood Cells into Peripheral Vein, Percutaneous Approach (ICD-10-PCS; principal; 2025-06-16)
DX: O36.80X0 Pregnancy with inconclusive fetal viability, not applicable or unspecified (principal); R10.30 Lower abdominal pain, unspecified; Z3A.01 Less than 8 weeks gestation of pregnancy
CPT/HCPCS: 85025; 80048; 36415; 86900; 86850; 84703; 86901; 86920; 84702; 76817; 96375; 96374; 99285; 36430; J1200; J2270 ×2; P9016; J7050; J7030; J3010